=== PATIENT | female | born 1955 | race Caucasian/White ===

== ENCOUNTER → 2017-03-27 | Outpatient (CLI) | payer MEDICARE ==
[2017-03-27 10:54] LABS: ALT 38 U/L (9-52); AST 23 U/L (14-36); Alkaline Phosphatase 58 U/L (38-126); Anion Gap 7 mmol/L; Blood Urea Nitrogen 22 mg/dL (7-17); Calcium 9.8 mg/dL (8.4-10.2); Carbon Dioxide 29 mmol/L (22-30); Chloride 105 mmol/L (98-107); Cholesterol 190 mg/dL (<200); Glucose 99 mg/dL (74-99); HDL Cholesterol 44 mg/dL (40-60); Non-African American GFR(MDRD) 59 (>60 ml/min/1.73 sqM); Potassium 3.8 mmol/L (3.5-5.1); Sodium 141 mmol/L (137-145); Total Bilirubin 0.8 mg/dL (0.2-1.3); Total Protein 6.8 g/dL (6.3-8.2); Triglycerides 175 mg/dL (<150)
--- NOTE | 2017-03-28 11:32 | MM ---
Reason for exam: screening (asymptomatic). Last mammogram was performed 1 year ago. History: Patient is postmenopausal. Physical Findings: A clinical breast exam by your physician is recommended on an annual basis and results should be correlated with mammographic findings. MG 3D Screening Mammo W/Cad Bilateral CC and MLO view(s) were taken. Prior study comparison: March 16, 2016, mammogram, performed at [facility]. March 11, 2015, mammogram, performed at [facility]. The breast tissue is almost entirely fat. There is chronic nodularity in the right breast. No significant changes when compared with prior studies. ASSESSMENT: Benign, BI-RAD 2 RECOMMENDATION: Routine screening mammogram of both breasts in 1 year.
== END | disposition home or self-care (01) ==
LOC: RADMAMWWP 09:23
PROVIDERS: ATTEND Family Medicine
DX: Z12.31 Encounter for screening mammogram for malignant neoplasm of breast (principal); Z00.00 Encounter for general adult medical examination without abnormal findings
CPT/HCPCS: 80061; 80053; 77063; 36415; G0202

== ENCOUNTER → 2018-04-29 | Outpatient (CLI) | payer MEDICARE, OTHER ==
--- NOTE | 2018-05-01 07:55 | MM ---
Reason for exam: screening (asymptomatic). Last mammogram was performed 1 year and 1 month ago. History: Patient is postmenopausal. Physical Findings: A clinical breast exam by your physician is recommended on an annual basis and results should be correlated with mammographic findings. MG 3D Screening Mammo W/Cad Bilateral CC and MLO view(s) were taken. Prior study comparison: March 27, 2017, bilateral MG 3d screening mammo w/cad. March 16, 2016, mammogram, performed at [facility]. There are scattered fibroglandular densities. There are benign appearing round, oval, circumscribed bilateral masses similar to prior exams. Benign appearing bilateral calcifications. No suspicious abnormality. No significant changes when compared with prior studies. ASSESSMENT: Benign, BI-RAD 2 RECOMMENDATION: Routine screening mammogram of both breasts in 1 year.
== END | disposition home or self-care (01) ==
LOC: RADMAMWWP 10:55
PROVIDERS: ATTEND Family Medicine
DX: Z12.31 Encounter for screening mammogram for malignant neoplasm of breast (principal)
CPT/HCPCS: 77063; 77067

== ENCOUNTER → 2018-07-30 | Outpatient (CLI) | payer MEDICARE ==
--- NOTE | 2018-07-31 07:38 | US ---
EXAMINATION TYPE: US thyroid st tissue head/neck DATE OF EXAM: 07/30/2018 COMPARISON: NONE CLINICAL HISTORY: E04.9 GOITER. Goiter GLAND SIZE: Right Lobe: 4.6 x 1.4 x 2.3cm Overall Parenchyma: homogenous Left Lobe: 4.0 x 1.3 x 1.9cm Overall Parenchyma: homogeneous Isthmus Thickness: 0.4 cm NODULES RIGHT: # of nodules measured on right: 2 1. 0.9 X 0.5 x 0.6 cm hypoechoic nodule at the upper pole with poorly defined margins; . This nodu le is wider than tall and shows intranodular vascularity. Prior size: no prior 2. 0.9 X 0.6 x 0.8 cm hypoechoic nodule at the upper pole with poorly defined margins; . This nodul e is wider than tall and shows intranodular vascularity. Prior size: no prior LEFT: # of nodules measured on left: 2 1. 0.6 x 0.4x 0.6cm nodule at the mid pole withwell-defined margins; . This nodule is wider than ta ll and shows no intranodular vascularity. Prior size: no prior 2. 1.2 x 0.8 x 1.2cm cystic nodule at the lower pole with well defined margins. Internal calcificati ons noted. This nodule is wider than tall and shows no intranodular vascularity. Prior size: no prior ISTHMUS: # of nodules measured in the isthmus: 0 IMPRESSION: Scattered bilateral subcentimeter nodules. A 1 cm nodule is at the lower pole of the left lobe thyroi d appears complex cystic.
--- NOTE | 2018-07-31 07:50 | US ---
EXAMINATION TYPE: US pelvic complete DATE OF EXAM: 07/30/2018 COMPARISON: NONE CLINICAL HISTORY: R10.2 PELVIC PAIN. Partial hysterectomy, intermittent pelvic pain TECHNIQUE: Transvaginal (TV) and Transabdominal (TA) . Transabdominal sonographic images of the pel vis were acquired. Transvaginal sonographic images were medically necessary to better assess the fol lowing anatomy: ovaries Date of LMP: unknown EXAM MEASUREMENTS: Uterus: Surgically absent Endometrial Stripe: Surgically absent Right Ovary: unable to visualize Left Ovary: unable to visualize 1. Uterus: Surgically absent 2. Endometrium: Surgically absent 3. Right Ovary: Obscured by overlying bowel gas 4. Left Ovary: Obscured by overlying bowel gas 5. Bilateral Adnexa: appears wnl Urinary bladder is sonolucent. Posterior wall is normal. IMPRESSION: 1. Limited pelvic ultrasound. Patient is post hysterectomy. Bowel gas limits evaluation of the ovarie s.
== END | disposition home or self-care (01) ==
LOC: RADUSWWP 15:41
PROVIDERS: ATTEND Family Medicine
DX: E04.2 Nontoxic multinodular goiter (principal); R10.2 Pelvic and perineal pain; Z90.710 Acquired absence of both cervix and uterus
CPT/HCPCS: 76536; 76830; 76856

== ENCOUNTER → 2018-12-02 | Outpatient (CLI) | payer MEDICARE | LOC: LABPAT 13:23 | PROVIDERS: ATTEND Orthopaedic Surgery | DX: Z01.812 Encounter for preprocedural laboratory examination (principal) | CPT/HCPCS: 87070 ==

== ENCOUNTER 2018-12-23 06:20 | Inpatient (IN) | payer MEDICARE ==
--- NOTE | 2018-12-22 09:19 | HP ---
HISTORY AND PHYSICAL CHIEF COMPLAINT: Right knee pain. HISTORY OF PRESENT ILLNESS: The patient is a 63-year-old retired female who presents with progressive right knee pain, worsening over the past 6 months. She has had problems for years. She notes pain and stiffness. She notes pain with weightbearing activities that limits her. She has tried previous medications and injections with only partial temporary relief. PAST MEDICAL HISTORY: Significant for hypertension and arthritis. PAST SURGICAL HISTORY: Significant for right total shoulder arthroplasty in addition to a left total knee arthroplasty. CURRENT MEDICATIONS: Aspirin and hydrochlorothiazide. ALLERGIES: She notes sensitivities to ULTRAM, BACTRIM, DICLOFENAC, and CIPROFLOXACIN; however, no daisy drug allergies. FAMILY HISTORY: Significant for cancers and stroke. SOCIAL HISTORY: Negative for current tobacco or alcohol use. REVIEW OF SYSTEMS: Sixteen-point review of systems otherwise reviewed and is noncontributory. PHYSICAL EXAMINATION: On examination, the patient is approximately 5 feet 2 inches, 213 pounds of endomorphic habitus. HEENT exam is nonfocal. Neck is supple. She has painless passive motion of the right hip. Straight leg raise is negative. Active motion right knee is -10 to 105 degrees of flexion. She is tender about the medial and lateral joint line. She has some moderate effusion. Collaterals are stable, Johnny's negative, Sakshi's is equivocal. Her distal neurovascular exam appears intact in the right lower extremity. Weightbearing notch lateral and Merchant views of the right knee obtained in the office show severe tricompartmental osteoarthrosis along with chondrocalcinosis. IMPRESSION: Right knee severe tricompartmental osteoarthrosis-symptomatic. RECOMMENDATIONS: I talked to the patient at length regarding her condition and treatment options. At this point, she is having significant pain and mechanical symptoms despite adequate conservative measures. After thorough discussion, she opts to proceed with surgery. We will plan to proceed with right total knee arthroplasty. Risks and benefits were discussed at length in layman's terms. We will institute DVT prophylaxis postoperatively. The patient underwent preoperative medical evaluation by Dr. Goncalves. OLW / ALEC: [id number] /
[~2018-12-23 06:20] MED LIST: ACETAMINOPHEN TAB 500 MG TAB PO ONE; DEXAMETHASONE SOD PHOSPHATE 10 MG/ML 1 ML VIAL IV ONE; MELOXICAM 7.5 MG TAB PO ONE; MIDAZOLAM (PF) 2 MG/2 ML VIAL IV PRN; ONDANSETRON 4 MG/2 ML VIAL IVP ONE; SCOPOLAMINE 1.5MG/72HR PATCH TRANSDERM ONE; TRANEXAMIC ACID 1,000 MG in SODIUM CHLORIDE 0.9% 100 ML IVPB ONE; fentaNYL (PF) 50 MCG/ML 2 ML AMP IV PRN
[2018-12-23] MEDS ORDERED: DEXAMETHASONE SOD PHOS (MDV) 100 MG/10 ML VIAL IVP ONE (06:55)
[2018-12-23] MEDS ORDERED: LACTATED RINGERS 1,000 ML IV ONE ×4 (06:55→09:29)
[2018-12-23] MEDS ORDERED: ONDANSETRON 4 MG/2 ML VIAL IVP ONE (06:55)
[2018-12-23] MEDS ORDERED: fentaNYL (PF) 50 MCG/ML 2 ML AMP IVP ONE (07:12)
[2018-12-23] MEDS ORDERED: PROPOFOL 10 MG/ML 20 ML VIAL IV ONE (07:56)
[2018-12-23] MEDS ORDERED: TRANEXAMIC ACID 1,000 MG/10 ML VIAL ONE (07:56)
[2018-12-23] MEDS ORDERED: PHENYLEPHRINE-0.9% NACL SYG 1 MG/10 ML SYRINGE ONE (07:56)
[2018-12-23] MEDS ORDERED: SODIUM CHLORIDE 0.9% 100 ML BAG ONE (07:56)
[2018-12-23] MEDS ORDERED: ePHEDrine SULFATE/0.9% NACL/PF 50 MG/5 ML SYRINGE IV ONE (07:56)
[2018-12-23] MEDS ORDERED: MIDAZOLAM 2 MG/2 ML VIAL ONE (07:56)
[2018-12-23] MEDS ORDERED: ROPIVACAINE 1,100 MG, SODIUM CHLORIDE 0.9% 500 ML 330 ML MISCELLANE PRN ×2 (07:58)
--- NOTE | 2018-12-23 08:00 | P.ONQ ---
Anesthesiology Proc Note - PNB - Peripheral Nerve Block Performed Right Adductor Canal Infusion Time Out Performed: Yes Procedure Start Time: 07:11 Indication: Acute Post-Operative Pain Specifically requested for management of pain by DrMayra: Jarek Castañeda Sedation Type: Sedate with meaningful contact maintained Preparation: Sterile Prep Position: Supine Catheter Depth at Skin (cm): 8 Catheter: Indwelling Needle Size: 100mm (4") Needle Gauge: 18 Technique: Ultrasound Injectate: 0.5% Ropivacaine (see comment for volume) (20 cc) Blood Aspirated: No Pain Paresthesia on Injection Noted: No Resistance on Injection: Normal Events: Uneventful and Well Tolerated
[2018-12-23] MEDS: ROPIVACAINE 246.25 MG, EPINEPHrine 0.5 MG, KETOROLAC 30 MG, cloNIDine HCL/PF 80 MCG, WA... MISCELLANE ONE ×10 (08:13→08:40)
[2018-12-23] MEDS: ceFAZolin IN SWFI 2 GM/20 ML SYRINGE IVP ONE ×2 (08:13→08:21)
[2018-12-23] MEDS ORDERED: ceFAZolin 3,000 MG in SODIUM CHLORIDE 0.9% IRRIGATIO 3,000 ML IRRIGATION ONE (08:32)
[2018-12-23] MEDS ORDERED: NALOXONE 0.4 MG/ML 1 ML VIAL IV PRN (09:41)
[2018-12-23] MEDS ORDERED: ONDANSETRON 4 MG/2 ML VIAL IVP PRN (09:41)
[2018-12-23] MEDS ORDERED: HYDROmorphone 0.5 MG/0.5 ML SYRINGE IVP PRN (09:41)
[2018-12-23] MEDS ORDERED: MAGNESIUM HYDROXIDE 2,400 MG/10 ML CUP PO PRN (09:41)
--- NOTE | 2018-12-23 10:06 | P.OP ---
Date of Procedure: 12/23/18 Preoperative Diagnosis: Right knee severe tricompartmental osteoarthrosis Postoperative Diagnosis: Same Procedure(s) Performed: Right total knee arthroplastycementedcruciate retaining Implants: Bishop persona size 6 cemented femoral component, size the cemented tibial component, 10 mm articular surface, 29 mm cemented patellar component. This is a cruciate retaining implant. Anesthesia: regional, local, spinal Surgeon: Jarek Castañeda Call Or Contact Centre Coach #1: Xu Barreto Estimated Blood Loss (ml): 50 Pathology: other (Bone fragments) Condition: stable Disposition: PACU Indications for Procedure: The patient's a 63-year-old female who presents with progressive right knee pain secondary to osteoporosis despite conservative measures. A discussion of the risks and benefits of operative intervention versus continued conservative measures was made with patient. She opted to proceed with surgery. Operative risks to include infection, neurovascular injury, development of blood clots, possible component loosening, possible component failure and need for subsequent procedures was discussed. Operative Findings: As below Description of Procedure: The patient was brought to the operating room, and after induction of spinal anesthesia the right lower extremity was prepped and draped in a normal fashion. The tourniquet was inflated to 270 mmHg. A longitudinal incision extending 3 finger breaths above the superior pole of the patella extending to the medial aspect the tibial tubercle was then made. The skin and subcutaneous tissues were divided sharply. Electrocautery was used for hemostasis. A medial parapatellar arthrotomy was then performed. The medial soft tissues to include the superficial and deep portions of the medial collateral ligament as well as the medial hamstring tendons were elevated subperiosteally. The patella was everted. The knee was flexed. A portion of the retropatellar fat pad was excised sharply. The anterior cruciate ligament was sacrificed. I did release the lateral collateral and popliteus from the lateral femoral condyle with electrocautery as she had significant valgus deformity. A starting hole was made in the distal femur 1 cm anterior to the posterior cruciate origin. An intramedullary femoral guide was gently inserted planning on 5 valgus distal cut with 9 mm distal resection. The cutting block was pinned in place. The distal cut was then made. The posterior referencing sizing guide was utilized. 3 of external rotation was built into the system and verified off the trans-epicondylar axis and the posterior condyles. I felt size 6 was most appropriate. The cutting block was pinned in place. The anterior, posterior, and chamfer cuts were then made. The bone fragments were removed. The trial size 6 femoral component was then placed and was fully seated. There was good anterior to posterior and medial to lateral fit. The distal peg holes were then drilled. The trial component was then removed. Attention was then paid towards preparing the proximal tibia. An extra medullary guide was utilized in line with the tibial shaft and second metatarsal distally. A 7 posterior slope was planned. I planned on 8 mm resection from the medial compartment. The cutting block was pinned in place. The proximal tibial cut was then made. The bone was removed in one fragment. The remnants of the medial and lateral menisci were excised the capsule junction with electrocautery. The tibia sized most appropriately at size D. The posterior osteophytes off the distal femur were carefully removed with a curved osteotome. The trial tibial and femoral components were placed along with a 10 millimeters articular surface. I was able to obtain full flexion and extension with good stability with varus and valgus stress. After several flexion and extension cycles, the tibial rotation was marked with electrocautery in line with the medial one third of the tibial tubercle. Attention was then paid towards preparing the patella. A patella reamer was utilized taking this down to 14 mm of bone stock. A good flush cut was made. The patella sized most appropriately at 29 millimeters. The peg holes were then drilled. The trial component was placed. The knee was taken through a range of motion. I had good patellofemoral tracking with no hands technique. The trial components were then removed. The tibia was prepared in the appropriate rotation with appropriate drill and keel punch. The flexion and extension gaps were checked and felt to be symmetric. The posterior soft tissues were injected with ropivacaine. The bony surfaces were prepared with pulsatile lavage and dried. The deep tibial component was then cemented in place and was fully seated. Excess cement was removed. The femoral component was cemented in place and was fully seated. Again excess cement was removed. The trial 10 millimeters surface was then inserted in the knee was put in full extension. The patella component was cemented in place. After the cement had sufficiently hardened, the knee was again taken through a range of motion. Again there was good stability in flexion and extension with varus and valgus stress. The trial articular surface was then removed. The final articular surface was placed and was impacted. Care was taken to avoid any soft tissue interposition. Pulsatile lavage was again utilized. The tourniquet was deflated with approximately 55 minutes total tourniquet time. There was minimal drainage therefore a deep drain was not placed. The medial parapatellar arthrotomy was then closed with #2 Ethibond suture. The subcutaneous tissues were reapproximated interrupted 2-0 Vicryl sutures. The skin was reapproximated with 3-0 subarticular strata fix suture. Skin tape and adhesive was applied. A sterile dressing was applied. The patient was then awoken from sedation and transferred to recovery room in good condition. Blood loss was estimated at 50 milliliters. No complications were incurred. Sponge and needle counts were correct at the end the case. Gavin REDDY assisted during the major components this case to include exposure, bone resection, and implantation.
--- NOTE | 2018-12-23 10:38 | XR ---
EXAMINATION TYPE: XR knee limited RT DATE OF EXAM: 12/23/2018 CLINICAL HISTORY: Right knee pain and arthritis status post total knee replacement. TECHNIQUE: Portable AP and crosstable lateral views of the right knee are obtained immediately posto peratively. COMPARISON: None FINDINGS: Metallic hardware from total right knee arthroplasty is seen and appears satisfactory in a lignment and position. There is evidence of recent surgery with diffuse subcutaneous gas and soft t issue swelling noted. Some ossific density suprapatellar bursa are noted. IMPRESSION: METALLIC HARDWARE FROM TOTAL RIGHT KNEE ARTHROPLASTY IS SATISFACTORY IN ALIGNMENT.
[2018-12-23 10:59] VITALS: BMI 40.2
[2018-12-23] MEDS: HYDROmorphone 0.5 MG/0.5 ML SYRINGE IVP PRN (13:10)
[2018-12-23] MEDS: ASCORBIC ACID 500 MG TAB PO SCH (13:11)
[2018-12-23] MEDS: MULTIVITAMINS, THERA 1 EACH TAB PO SCH (13:11)
[2018-12-23] MEDS: LISINOPRIL 20 MG TAB PO SCH (13:11)
[2018-12-23] MEDS: HYDROCHLOROTHIAZIDE 25 MG TAB PO SCH (13:12)
[2018-12-23] MEDS: LACTATED RINGERS 1,000 ML IV SCH (13:12)
[2018-12-23] MEDS: FAMOTIDINE 20 MG TAB PO SCH (13:12)
[2018-12-23] MEDS: ceFAZolin IN SWFI 2 GM/20 ML SYRINGE IVP SCH ×2 (16:29→23:39)
[2018-12-23] MEDS: HYDROcodone/APAP 7.5-325MG 1 EACH TAB PO PRN ×2 (16:29→21:53)
[2018-12-23] MEDS: SENNOSIDES-DOCUSATE SODIUM 1 EACH TAB PO SCH (20:44)
--- NOTE | 2018-12-23 21:02 | CONS ---
CONSULTATION DATE OF CONSULTATION: 12/23/2018 REASON FOR CONSULTATION: Medical management, requested by Dr. Castañeda. CONSULTATION: This is a 63-year-old patient of Dr. Goncalves out of [place]. Chronic stable medical conditions include GERD, hypertension, rheumatoid arthritis, varicose veins. The patient has undergone right total knee arthroplasty. Post procedure, pain is controlled. No nausea or vomiting. No cardiac history. No chest pain or shortness of breath. REVIEW OF SYSTEMS: CONSTITUTIONAL: None. HEENT: None. RESPIRATORY: None. CARDIOVASCULAR: None. GASTROINTESTINAL: Occasional heartburn. GENITOURINARY: None. MUSCULOSKELETAL: Pain in many joints. DERMATOLOGICAL: None. HEMATOLOGICAL: None. LYMPHATICS: None. PSYCHIATRY: None. NEUROLOGICAL: None. PAST MEDICAL HISTORY: 1. GERD. 2. Hypertension. 3. Rheumatoid arthritis. 4. Varicose veins. 5. Hiatal hernia. PAST SURGICAL HISTORY: 1. Ear surgery. 2. Hernia repair. 3. Hysterectomy. 4. Right shoulder replacement. 5. Right ear surgery. 6. Left paraesophageal hernia repair. 7. Left total knee arthroplasty. SOCIAL HISTORY: No smoking. Alcohol rarely. . FAMILY HISTORY: Mother had uterine cancer. HOME MEDICATIONS: 1. Vitamin B complex 1 capsule p.o. daily. 2. Multivitamin 1 tablet p.o. daily. 3. Motrin 800 mg q.8 p.r.n. 4. Lasix 20 mg p.o. daily. 5. Pepcid 20 mg p.o. daily. 6. Vaseretic 20/25 one tablet p.o. daily. 7. Tagamet 400 mg p.o. daily p.r.n. 8. Vitamin D3 5000 units p.o. daily. 9. Zyrtec 10 mg p.o. daily. 10.FiberCon 625 mg p.o. daily. 11.Calcium 600 mg p.o. daily. 12.Aspirin 325 p.o. b.i.d. 13.Vitamin C 500 mg p.o. daily. 14.Tylenol Arthritis 1300 mg q.8 p.r.n. ALLERGIES: 1. CHLOROMYCETIN. 2. CIPRO. 3. DICLOFENAC. 4. BACTRIM. 5. ULTRAM. PHYSICAL EXAMINATION: VITAL SIGNS: Temperature 97.3, pulse 80, respiration 14, blood pressure 112/59, pulse ox 95% on room air. GENERAL APPEARANCE: Well built; BMI 38.4. Sitting up. Comfortable. EYES: Pupils equal. Conjunctivae normal. HEENT: External appearance of nose and ears normal. Oral cavity normal. NECK: JVD not raised. Mass not palpable. RESPIRATORY: Effort normal. Lungs are clear. CARDIOVASCULAR: First and second sounds normal. No edema. ABDOMEN: Soft, non-tender. Liver and spleen not palpable. LYMPHATIC: No lymph node palpable in neck or axillae. PSYCHIATRY: Alert and oriented x3. Mood and affect normal. EXTREMITIES: Right knee in a dressing. MUSCULOSKELETAL: Evidence of osteoarthritis, especially in the hands. INVESTIGATIONS: No blood work. ASSESSMENT: 1. Right total knee arthroplasty. 2. Gastroesophageal reflux disease. 3. Essential hypertension. 4. Rheumatoid arthritis. 5. Varicose veins. 6. Obesity; body mass index of 38.4. PLAN: Patient's pain control is in place. Getting IV fluids. Also on aspirin 325 twice a day for DVT prophylaxis. Home medications are resumed. Care was discussed with the patient. Questions were answered. Thank you, Dr. Castañeda. [id number] / ALEC: [id number] /
[2018-12-24] MEDS: HYDROcodone/APAP 7.5-325MG 1 EACH TAB PO PRN ×4 (04:48→21:01)
[2018-12-24] MEDS: LACTATED RINGERS 1,000 ML IV SCH (05:23)
[2018-12-24 09:00] LABS: Basophils % (A) 0 %; Eosinophils % (A) 0 %; HCT 34.1 % (34.0-46.0); Lymphocytes # (A) 1.8 k/uL (1.0-4.8); Lymphocytes % (A) 14 %; MCH 29.6 pg (25.0-35.0); MCHC 32.1 g/dL (31.0-37.0); Mean Platelet Volume 6.8; Monocytes # (A) 0.6 k/uL (0-1.0); Monocytes % (A) 4 %; Neutrophils # (A) 10.9 k/uL (1.3-7.7); Neutrophils % (A) 81 %; Platelet Count 247 k/uL (150-450); RBC 3.71 m/uL (3.80-5.40); RDW 14.2 % (11.5-15.5); WBC 13.6 k/uL (3.8-10.6)
[2018-12-24] MEDS: MULTIVITAMINS, THERA 1 EACH TAB PO SCH (09:54)
[2018-12-24] MEDS: ASPIRIN 325 MG TAB PO SCH ×2 (09:54→21:01)
[2018-12-24] MEDS: HYDROCHLOROTHIAZIDE 25 MG TAB PO SCH (09:54)
[2018-12-24] MEDS: ASCORBIC ACID 500 MG TAB PO SCH (09:54)
[2018-12-24] MEDS: FAMOTIDINE 20 MG TAB PO SCH (09:54)
[2018-12-24] MEDS: LISINOPRIL 20 MG TAB PO SCH (09:54)
[2018-12-24 12:08] LABS: Glucose,Whole Blood 112 mg/dL (75-99)
--- NOTE | 2018-12-24 12:14 | P.PN ---
Subjective Progress Note Date: 12/24/18 Principal diagnosis: Status post right total knee arthroplasty Patient evaluated at bedside today, she has family present. Her pain is controlled currently. She's ambulated with therapy. She denies any fevers or chills, chest pain or shortness of breath. Objective - Vital Signs Vital signs: Vital Signs Temp 97.3 F L 12/24/18 07:00 Pulse 75 12/24/18 09:54 Resp 16 12/24/18 09:54 BP 103/69 12/24/18 07:00 Pulse Ox 97 12/24/18 07:00 Intake & Output 12/23/18 12/24/18 12/24/18 18:59 06:59 18:59 Intake Total 1641 600 Output Total 50 Balance 1591 600 Intake: IV 1101 Intake, IV Titration 420 600 Amount Lactated Ringers 1,000 ml 420 600 @ 60 mls/hr IV .[id number] CASEY Rx#:[id number] Oral 120 Output: Estimated Blood Loss 50 - Exam Right lower extremity: Incision is clean, dry, and intact. The exofin fusion tape is in good condition. There is minimal soft tissue swelling and ecchymosis surrounding the medial and lateral aspects of the incision. Calf is soft, no tenderness with palpation. Plantar flexion, dorsiflexion, EHL, FHL are intact. Sensory exam to light touch throughout the extremity is intact, dorsal pedis pulses 2+. - Labs CBC & Chem 7: 12/24/18 08:21 Labs: Abnormal Lab Results - Last 24 Hours (Table) 12/24/18 12/24/18 Range/Units 08:21 12:06 WBC 13.6 H (3.8-10.6) k/uL RBC 3.71 L (3.80-5.40) m/uL Hgb 11.0 L (11.4-16.0) gm/dL Neutrophils # 10.9 H (1.3-7.7) k/uL POC Glucose (mg/dL) 112 H (75-99) mg/dL Assessment and Plan Plan: Assessment: Postop day 1 status post right total knee arthroplasty Plan: Pain control, continue current medication GI and DVT prophylaxis continue current medication Medical recommendations Wound care instructions discussed Continue work physical therapy and use of CPM Encourage incentive spirometer Plan for discharge tomorrow Time with Patient: Less than 30
[2018-12-24] MEDS: SENNOSIDES-DOCUSATE SODIUM 1 EACH TAB PO SCH (21:02)
[2018-12-25] MEDS: HYDROmorphone 0.5 MG/0.5 ML SYRINGE IVP PRN (04:13)
[2018-12-25] MEDS: LACTATED RINGERS 1,000 ML IV SCH (05:17)
[2018-12-25] MEDS: HYDROcodone/APAP 7.5-325MG 1 EACH TAB PO PRN ×2 (07:10→12:52)
[2018-12-25 08:41] VITALS: RESP 12
[2018-12-25 08:53] VITALS: BP 112/78; PULSE 89; TEMP 99.4
[2018-12-25] MEDS: ASPIRIN 325 MG TAB PO SCH (09:16)
[2018-12-25] MEDS: FAMOTIDINE 20 MG TAB PO SCH (09:16)
[2018-12-25] MEDS: ASCORBIC ACID 500 MG TAB PO SCH (09:16)
[2018-12-25] MEDS: HYDROCHLOROTHIAZIDE 25 MG TAB PO SCH (09:16)
[2018-12-25] MEDS: LISINOPRIL 20 MG TAB PO SCH (09:16)
[2018-12-25] MEDS: MULTIVITAMINS, THERA 1 EACH TAB PO SCH (09:16)
--- NOTE | 2018-12-25 10:06 | P.PN ---
Subjective Progress Note Date: 12/25/18 Principal diagnosis: Status post right total knee arthroplasty Patient evaluated at bedside today, she has family present. Her pain is controlled currently. She's ambulated with therapy. She denies any fevers or chills, chest pain or shortness of breath. Objective - Vital Signs Vital signs: Vital Signs Temp 99.4 F 12/25/18 08:52 Pulse 89 12/25/18 08:52 Resp 12 12/25/18 08:52 BP 112/78 12/25/18 08:52 Pulse Ox 95 12/25/18 08:52 Intake & Output 12/24/18 12/25/18 12/25/18 18:59 06:59 18:59 Intake Total 500 Balance 500 Intake: Oral 500 Other: Voiding Method Toilet Toilet # Voids 1 - Exam Right lower extremity: Incision is clean, dry, and intact. The exofin fusion tape is in good condition. There is minimal soft tissue swelling and ecchymosis surrounding the medial and lateral aspects of the incision. Calf is soft, no tenderness with palpation. Plantar flexion, dorsiflexion, EHL, FHL are intact. Sensory exam to light touch throughout the extremity is intact, dorsal pedis pulses 2+. - Labs CBC & Chem 7: 12/24/18 08:21 Labs: Abnormal Lab Results - Last 24 Hours (Table) 12/24/18 Range/Units 12:06 POC Glucose (mg/dL) 112 H (75-99) mg/dL Assessment and Plan Plan: Assessment: Postop day #2 status post right total knee arthroplasty Plan: Pain control, plan for discharge on oral medication GI and DVT prophylaxis, aspirin 325mg bid Medical recommendations Wound care instructions discussed Continue work physical therapy and use of CPM Encourage incentive spirometer Plan for discharge today Time with Patient: Less than 30
--- NOTE | 2018-12-25 10:25 | P.DS ---
Providers Date of admission: 12/23/18 06:20 Expected date of discharge: 12/25/18 Attending physician: Jarek Castañeda Consults: 12/23/18 09:46 Consult Physician Routine Consulting Provider: Ranjeet Goncalves Reason/Comments: Medical Management Do you want consulting provider notified?: Yes Primary care physician: Ranjeet Goncalves Hospital Course: Date of admission: 12/23/2018 Date of discharge: 12/25/2018 Admission diagnosis: Status post right total knee arthroplasty Discharge diagnosis: Same Attending physician: Dr. Castañeda Surgical procedures: Right total knee arthroplasty Brief history: Patient is a 63-year-old female with a history of progressive primary right knee has arthritis. At this point patient has failed conservative treatment measures and has opted to proceed with a elective right total knee arthroplasty. Hospital course: Details of patient's surgery can be found in operative report. Patient tolerated the procedure well and was subsequently transported to orthopedic floor. Patient's orthopeidc and medical care was provided daily. Patient had daily laboratory tests performed for evaluation of overall blood counts. Patient had daily physical therapy to include strengthening range of motion as well as education with walker ambulation. Patient had daily CPM usage as part of their physical therapy program. Patient was treated with aspirin for their postoperative DVT prophylaxis during their inpatient stay. Patient was noted to have a relatively uneventful postoperative course. Patient reported satisfactory pain control with oral pain medications by postoperative day 0. Patient showed satisfactory progress with physical therapy. Patient moved steadily through the program and had no difficulty meeting the goals by postoperative day 2. Given patient's otherwise satisfactory course and having met physical therapy goals, plan is to discharge patient home on postoperative day 2. Discharge condition/disposition: Patient will be discharged home in stable condition. Discharge medications: Instructions are given on resumption of patient's normal daily medications per primary care recommendation, in addition patient will be prescribed [place] 7.5 mg/325 mg aspirin 325 mg Discharge instructions: 1. Wound care and infection precautions, keep incision dry and covered while showering, no lotions, creams, moisturizers. No soaking, tubs, pools, hottubs. Do not scrub over the incision. 2. Weight-bear as tolerated with walker / cane until follow-up. 3. Ice and elevate when necessary. Do not exceed 20 minutes per hour with ice pack. 4. Utilize compression sleeve until seen at first follow up appointment. 5. Visiting nursing care. 6. Home physical therapy including home CPM. 7. Pain meds and anticoagulants per prescription. 8. Pain medication has potential to cause constipation. Increase oral fluid and fiber intake. Contact primary care provider if you have not had a bowel movement within 48 hours after discharge 9. No anti-inflammatory medication until discussed at first post operative visit, this including Motrin, Aleve, Mobic, Diclofenac. 10. Follow up in office at 2 weeks postop with aGvin Barreto PA-C 11. Follow up with your primary care doctor 7-10 days after discharge. 12. Contact [facility] with any questions, . Procedures: Right total knee arthroplasty Patient Condition at Discharge: Good Plan - Discharge Summary Discharge Rx Participant: No New Discharge Prescriptions: New Aspirin 325 mg PO BID #60 tab HYDROcodone/APAP 7.5-325MG [[place] 7.5] 1 - 2 each PO Q6HR PRN #56 tab PRN Reason: Pain No Action Multivitamins, Thera [Multivitamin] 1 tab PO DAILY Cimetidine [Tagamet] 400 mg PO DAILY PRN PRN Reason: Heartburn Ascorbic Acid [Vitamin C] 500 mg PO DAILY Furosemide [Lasix] 20 mg PO DAILY Enalapril/Hydrochlorothiazide [Vaseretic 10-25 mg] 1 tab PO DAILY Calcium Carbonate [Calcium] 600 mg PO DAILY Cholecalciferol [Vitamin D3] 5,000 unit PO DAILY Vitamin B Complex 1 cap PO DAILY Acetaminophen [Tylenol Arthritis] 1,300 mg PO Q8H PRN PRN Reason: Pain Famotidine [Pepcid] 20 mg PO DAILY #30 tablet Ibuprofen [Motrin] 800 mg PO Q8H PRN PRN Reason: Pain Cetirizine HCl [Zyrtec] 10 mg PO DAILY Calcium Polycarbophil [Fibercon] 625 mg PO DAILY Discharge Medication List Acetaminophen [Tylenol Arthritis] 1,300 mg PO Q8H PRN 10/09/16 [History] Ascorbic Acid [Vitamin C] 500 mg PO DAILY 10/09/16 [History] Calcium Carbonate [Calcium] 600 mg PO DAILY 10/09/16 [History] Cholecalciferol [Vitamin D3] 5,000 unit PO DAILY 10/09/16 [History] Cimetidine [Tagamet] 400 mg PO DAILY PRN 10/09/16 [History] Enalapril/Hydrochlorothiazide [Vaseretic 10-25 mg] 1 tab PO DAILY 10/09/16 [ History] Furosemide [Lasix] 20 mg PO DAILY 10/09/16 [History] Multivitamins, Thera [Multivitamin] 1 tab PO DAILY 10/09/16 [History] Vitamin B Complex 1 cap PO DAILY 10/09/16 [History] Famotidine [Pepcid] 20 mg PO DAILY #30 tablet 10/18/16 [Rx] Calcium Polycarbophil [Fibercon] 625 mg PO DAILY 12/15/18 [History] Cetirizine HCl [Zyrtec] 10 mg PO DAILY 12/15/18 [History] Ibuprofen [Motrin] 800 mg PO Q8H PRN 12/15/18 [History] Aspirin 325 mg PO BID #60 tab 12/25/18 [Rx] HYDROcodone/APAP 7.5-325MG [[place] 7.5] 1 - 2 each PO Q6HR PRN #56 tab 12/25/18 [ Rx] Follow up Appointment(s)/Referral(s): [facility], [NON-STAFF] - Xu Barreto PAC [PHYSICIAN QUARRYING SPECIALIST] - 01/07/19 3:50 pm Ranjeet Goncalves MD [Primary Care Provider] - 01/01/19 12:15 pm Activity/Diet/Wound Care/Special Instructions: Orthopedic Discharge Instructions: 1. Wound care and infection precautions, keep incision dry and covered while showering, no lotions, creams, moisturizers. No soaking, pools, hot tubs. Do not scrub over incision. 2. Weight-bear as tolerated with walker / cane until follow-up. 3. Ice and elevate when necessary. Do not exceed 20 minutes per hour with ice pack. 4. Utilize compression sleeve until seen at first follow up appointment. 5. Pain meds and anticoagulants per prescription. 6. Pain medication has potential to cause constipation. Increase oral fluid and fiber intake. Contact primary care provider if you have not had a bowel movement within 48 hours after discharge. 7. No anti-inflammatory medication until discussed at first post operative visit, this including Motrin, Aleve, Mobic, Diclofenac. 8. Follow up in office at 2 weeks postop with Gavin Barreto PA-C 9. Follow up with your primary care doctor 7-10 days after discharge. 10. Contact [facility] with any questions, . Discharge Disposition: HOME WITH HOME HEALTH SERVICES
--- NOTE | 2018-12-25 21:20 | P.PN ---
Progress Note - Text 12/24 63-year-old female status post total knee replacement by Dr. Castañeda, patient has an On-Q pump for postop pain control with the solution running at 8 mL an hour. Patient's comfortable doing well continue On-Q pump infusion
--- NOTE | 2018-12-25 23:58 | PN ---
PROGRESS NOTE DATE OF SERVICE: 12/24/2018 PRESENTING COMPLAINT: Right knee surgery. INTERVAL HISTORY: This patient was seen by me yesterday, status post right total knee arthroplasty. Doing better. Did tolerate some diet. Pain is controlled. No nausea or vomiting. No chest pain. REVIEW OF SYSTEMS: Done for constitutional, cardiovascular, GI, pulmonary; relevant findings as above. CURRENT MEDICATIONS: Reviewed. PHYSICAL EXAMINATION: Temperature 97.3, pulse 75, respiration 16, blood pressure 103/69, pulse ox 97% on room air. GENERAL APPEARANCE: Sitting up. Comfortable. EYES: Pupils equal. Conjunctivae normal. NECK: JVD not raised. Mass not palpable. RESPIRATORY: Effort normal. Lungs are clear. CARDIOVASCULAR: First and second sounds normal. No edema. ABDOMEN: Soft, non-tender. Liver and spleen not palpable. PSYCHIATRY: Alert and oriented x3. Mood and affect normal. INVESTIGATIONS: Hemoglobin 11, white count 13.6. ASSESSMENT: 1. Right total knee arthroplasty. 2. Gastroesophageal reflux disease. 3. Essential hypertension. 4. Rheumatoid arthritis. 5. Varicose veins. 6. Obesity; body mass index 38.4. 7. Leukocytosis with no evidence of infection; likely reactive. PLAN: Continue current medication and treatment plan. Care was discussed with the patient. MMODL / IJN: [id number] /
== END 2018-12-25 13:25 | disposition home health service (06) | DRG 470 ==
LOC: 2ORMAIN 06:20 → 4SSUR 09:55
PROVIDERS: ADMIT Orthopaedic Surgery; ATTEND Orthopaedic Surgery
PROC: 0SRC0J9 Replacement of Right Knee Joint with Synthetic Substitute, Cemented, Open Approach (ICD-10-PCS; principal; 2018-12-23 08:00)
DX: M19.90 Unspecified osteoarthritis, unspecified site (principal); M06.9 Rheumatoid arthritis, unspecified; K21.9 Gastro-esophageal reflux disease without esophagitis; I10 Essential (primary) hypertension; I83.90 Asymptomatic varicose veins of unspecified lower extremity; K44.9 Diaphragmatic hernia without obstruction or gangrene; D72.829 Elevated white blood cell count, unspecified; M81.0 Age-related osteoporosis without current pathological fracture; E66.9 Obesity, unspecified; Z68.38 Body mass index [BMI] 38.0-38.9, adult; Z79.899 Other long term (current) drug therapy; Z90.710 Acquired absence of both cervix and uterus; Z96.611 Presence of right artificial shoulder joint; Z96.652 Presence of left artificial knee joint; Z80.49 Family history of malignant neoplasm of other genital organs; Z82.3 Family history of stroke
CPT/HCPCS: 85025; 88300

== ENCOUNTER 2019-06-14 | Emergency (ER) | payer MEDICARE ==
--- NOTE | 2019-06-14 16:25 | ED ---
Extremity Problem HPI - General Chief complaint: Extremity Problem,Nontraumatic Stated complaint: LEFT LEG CRAMPS Time Seen by Provider: 06/14/19 16:06 Source: patient Mode of arrival: ambulatory - History of Present Illness Initial comments: Patient is a 64-year-old female presenting to the emergency Department with complaints of cramping of her left calf today. Patient states yesterday morning she woke up with some cramping in her calf and she was able to walk them off and the pain went away. Patient states this morning she had a similar episode and again was able to improve her symptoms by walking. Patient states about an hour ago she had another episode of left calf cramping which traveled all the way up to her knee. Patient states the pain was much more intense. Patient states she was able to stretch and use ice pack on the muscle and it did relieve the cramping. Patient was concerned she may have a DVT and decided to come in the ER. Upon arrival, patient is having no pain in her left or right lower extremity. Patient denies recent travel history, history of DVTs. Patient denies fever, chills, cough, chest pain, shortness of breath Patient has no o ther complaints at this time. - Related Data Home Medications Medication Instructions Recorded Confirmed Acetaminophen [Tylenol Arthritis] 1,300 mg PO Q8H PRN 10/09/16 12/23/18 Ascorbic Acid [Vitamin C] 500 mg PO DAILY 10/09/16 12/23/18 Calcium Carbonate [Calcium] 600 mg PO DAILY 10/09/16 12/23/18 Cholecalciferol [Vitamin D3] 5,000 unit PO DAILY 10/09/16 12/23/18 Cimetidine [Tagamet] 400 mg PO DAILY PRN 10/09/16 12/23/18 Enalapril/Hydrochlorothiazide 1 tab PO DAILY 10/09/16 12/23/18 [Vaseretic 10-25 mg] Furosemide [Lasix] 20 mg PO DAILY 10/09/16 12/23/18 Multivitamins, Thera [Multivitamin] 1 tab PO DAILY 10/09/16 12/23/18 Vitamin B Complex 1 cap PO DAILY 10/09/16 12/23/18 Calcium Polycarbophil [Fibercon] 625 mg PO DAILY 12/15/18 12/23/18 Cetirizine HCl [Zyrtec] 10 mg PO DAILY 12/15/18 12/23/18 Ibuprofen [Motrin] 800 mg PO Q8H PRN 12/15/18 12/23/18 Previous Rx's Medication Instructions Recorded Famotidine [Pepcid] 20 mg PO DAILY #30 tablet 10/18/16 Aspirin 325 mg PO BID #60 tab 12/25/18 HYDROcodone/APAP 7.5-325MG [[place] 1 - 2 each PO Q6HR PRN #56 tab 12/25/18 7.5] Allergies Allergy/AdvReac Type Severity Reaction Status Date / Time chloramphenicol Allergy dizzy Verified 06/14/19 16:04 [From Chloromycetin] ciprofloxacin Allergy Rash/Hives Verified 06/14/19 16:04 diclofenac Allergy Itching,ana Verified 06/14/19 16:04 rrhea sulfamethoxazole Allergy Rash/Hives Verified 06/14/19 16:04 [From Bactrim] tramadol [From Ultram] Allergy Itching Verified 06/14/19 16:04 trimethoprim [From Bactrim] Allergy Rash/Hives Verified 06/14/19 16:04 Review of Systems ROS Statement: Those systems with pertinent positive or pertinent negative responses have been documented in the HPI. ROS Other: All systems not noted in ROS Statement are negative. Past Medical History Past Medical History: GERD/Reflux, Hypertension, Rheumatoid Arthritis (RA) Additional Past Medical History / Comment(s): varicose veins, hx hiatal hernia, bakers cyst back of left knee History of Any Multi-Drug Resistant Organisms: None Reported Past Surgical History: Ear Surgery, Hernia Repair, Hysterectomy, Joint Replacement Additional Past Surgical History / Comment(s): rt shoulder replacement, R ear surgery, L paraesophageal hernia repair. LT TKA, COLONOSCOPY Past Anesthesia/Blood Transfusion Reactions: Motion Sickness Past Psychological History: No Psychological Hx Reported Smoking Status: Never smoker Past Alcohol Use History: Rare Past Drug Use History: None Reported - Past Family History Mother Family Medical History: Cancer Additional Family Medical History / Comment(s): Mother had uterine cancer. Father Family Medical History: Rheumatoid Arthritis (RA) Additional Family Medical History / Comment(s): Father had varicosities and hernias. General Exam - General Exam Comments Initial Comments: GENERAL: Well-appearing, well-nourished and in no acute distress. HEAD: Atraumatic, normocephalic. EYES: Pupils equal round and reactive to light, extraocular movements intact, sclera anicteric, conjunctiva are normal. ENT: TMs normal, nares patent, oropharynx clear without exudates. Moist mucous membranes. NECK: Normal range of motion, supple without lymphadenopathy or JVD. LUNGS: Breath sounds clear to auscultation bilaterally and equal. No wheezes rales or rhonchi. HEART: Regular rate and rhythm without murmurs, rubs or gallops. ABDOMEN: Soft, nontender, normoactive bowel sounds. No guarding, no rebound. No masses appreciated. : Deferred EXTREMITIES: Normal range of motion, no pitting or edema. No clubbing or cyanosis. No erythema or pain with palpation of the bilateral lower legs. NEUROLOGICAL: Cranial nerves II through XII grossly intact. Normal speech, normal gait. PSYCH: Normal mood, normal affect. SKIN: Warm, Dry, normal turgor, no rashes or lesions noted. Course Vital Signs 06/14/19 16:01 Temperature 99.1 F Pulse Rate 81 Respiratory 16 Rate Blood Pressure 123/65 O2 Sat by Pulse 100 Oximetry Medical Decision Making - Medical Decision Making Patient is a 64-year-old female presenting with lower leg cramps x 2 day. Patient describes left lower leg gastroc cramp that lasted 5 minutes and she was able to relieve with stretching and ice packs. Patient was concerned that this is a sign for DVT. Patient denies any recent travel, history of DVTs. Initially, patient denied any recent increase in activity. However patient did admit to recently walking a lot of stairs at a [employer] [facility] as well as walking up and down hills at a house. On exam patient has no pain in the bilateral lower legs. There is no erythema. Concern for DVTs is very low at this time. Was discussed with patient is a most likely muscle cramps and to continue with stretching and ice as needed for relief. Also increase fluid intake over the next few days. Follow-up with PCP if symptoms continue. Patient is in agreement with this plan of care. She is stable for discharge. Disposition Clinical Impression: Calf cramp Disposition: HOME SELF-CARE Condition: Stable Instructions (If sedation given, give patient instructions): Leg Cramps (ED) Additional Instructions: Please return to the Emergency Department if symptoms worsen or any other concerns. Follow-up with PCP if symptoms continue. Use stretching and ice for relief. Increase fluid intake as discussed. Is patient prescribed a controlled substance at d/c from ED?: No Referrals: Ranjeet Goncalves MD [Primary Care Provider] - 1-2 days
== END 2019-06-14 16:46 | disposition home or self-care (01) ==
CPT/HCPCS: 99282

== ENCOUNTER → 2019-07-02 | Outpatient (CLI) | payer MEDICARE ==
--- NOTE | 2019-07-06 09:30 | MM ---
Reason for exam: screening (asymptomatic). Last mammogram was performed 1 year and 2 months ago. History: Patient is postmenopausal. Family history of breast cancer in maternal aunt. Physical Findings: A clinical breast exam by your physician is recommended on an annual basis and results should be correlated with mammographic findings. MG 3D Screening Mammo W/Cad Bilateral CC and MLO view(s) were taken. CV view(s) were taken of the left breast. Prior study comparison: April 29, 2018, bilateral MG 3d screening mammo w/cad. March 27, 2017, bilateral MG 3d screening mammo w/cad. There are scattered fibroglandular densities. There is chronic nodularity in the right breast. Benign oil cyst calcifications greater in the right breast. Lower inner quadrant left breast microcalcifications appear punctate and were seen in 2018. ASSESSMENT: Benign, BI-RAD 2 RECOMMENDATION: Routine screening mammogram of both breasts in 1 year.
== END | disposition home or self-care (01) ==
LOC: RADMAMWWP 13:15
PROVIDERS: ATTEND Family Medicine
DX: Z12.31 Encounter for screening mammogram for malignant neoplasm of breast (principal)
CPT/HCPCS: 77063; 77067

== ENCOUNTER → 2020-04-06 | Outpatient (CLI) | payer MEDICARE ==
[2020-04-06 09:08] LABS: Basophils # (A) 0.1 k/uL (0-0.2); Basophils % (A) 1 %; Eosinophils # (A) 0.1 k/uL (0-0.7); Eosinophils % (A) 2 %; HCT 40.1 % (34.0-46.0); HGB 13.1 gm/dL (11.4-16.0); Lymphocytes # (A) 1.3 k/uL (1.0-4.8); Lymphocytes % (A) 25 %; MCH 29.4 pg (25.0-35.0); MCHC 32.8 g/dL (31.0-37.0); MCV 89.9 fL (80.0-100.0); Mean Platelet Volume 7.8; Monocytes # (A) 0.3 k/uL (0-1.0); Monocytes % (A) 5 %; Neutrophils # (A) 3.3 k/uL (1.3-7.7); Neutrophils % (A) 63 %; Platelet Count 281 k/uL (150-450); RBC 4.46 m/uL (3.80-5.40); RDW 13.5 % (11.5-15.5); WBC 5.2 k/uL (3.8-10.6)
[2020-04-06 09:30] LABS: Albumin 4.2 g/dL (3.5-5.0); Calcium 9.8 mg/dL (8.4-10.2); Potassium 4.6 mmol/L (3.5-5.1); Total Bilirubin 0.5 mg/dL (0.2-1.3); Total Protein 6.8 g/dL (6.3-8.2)
[2020-04-06 09:46] LABS: INR 0.9 (<1.2); Partial Thromboplastin Time 24.8 sec (22.0-30.0); Prothrombin Time 9.7 sec (9.0-12.0)
== END | disposition home or self-care (01) ==
LOC: LABPAT 07:55
PROVIDERS: ATTEND Orthopaedic Surgery
DX: Z01.818 Encounter for other preprocedural examination (principal); Z01.812 Encounter for preprocedural laboratory examination
CPT/HCPCS: 80053; 85025; 85610; 85730; 87070

== ENCOUNTER 2020-04-08 05:32 | Inpatient (IN) | payer MEDICARE ==
[2020-04-05 13:01] VITALS: BMI 40.0
--- NOTE | 2020-04-07 10:38 | HP ---
HISTORY AND PHYSICAL CHIEF COMPLAINT: Left shoulder pain. HISTORY OF PRESENT ILLNESS: The patient is a 64-year-old, right-hand dominant, retired female who presents with progressive left shoulder pain for the past 2 years. She has a history of arthritis. She has diffuse pain with any attempted overhead use and at night. It has worsened recently. She has tried anti-inflammatories without much relief. PAST MEDICAL HISTORY: Significant for hypertension and arthritis. PAST SURGICAL HISTORY: Significant for bilateral ear surgery, esophageal hernia repair, right total shoulder arthroplasty and bilateral total knee arthroplasties. CURRENT MEDICATIONS: Aspirin, hydrochlorothiazide, Lasix, ibuprofen. She has sensitivity to Bactrim, Ultram, diclofenac, and ciprofloxacin. However, no daisy drug allergies. FAMILY HISTORY: Significant for cancer. SOCIAL HISTORY: Negative for current tobacco or alcohol use. 16 POINT REVIEW OF SYSTEMS: Otherwise reviewed and is noncontributory. PHYSICAL EXAMINATION: On examination, the patient is approximately 5 foot 2, 226 pounds of endomorphic habitus. HEENT: Exam is nonfocal. Neck is supple. On examination of the left shoulder, she is tender about the anterior glenohumeral joint. She has mild swelling. She has moderate subacromial crepitus. Active range of motion, forward elevation 85 degrees, external rotation with the arms at side -10 degrees, internal rotation to the body. Motor strength is 5/5 for abduction and external rotation. Her distal neurovascular exam appears intact in the left upper extremity. X-rays to include AP, scapular outlet view and axillary lateral view of the left shoulder show severe glenohumeral joint osteoarthrosis with [id number] changes. The humeral head to acromial distance appears to be maintained. IMPRESSION: Severe left glenohumeral joint osteoarthrosis-symptomatic. RECOMMENDATIONS: I talked to the patient at length regarding her condition and treatment options. At this point, she is quite symptomatic and limited because of pain and stiffness related to her osteoarthrosis, despite attempting conservative measures. After a thorough discussion, she opts to proceed with surgery. We will plan to proceed with left total shoulder arthroplasty. Risks and benefits were discussed at length in layman's terms. We will likely keep the patient for a 23-hour hold postoperatively. MMODL / IJN: [id number] /
[~2020-04-08 05:32] MED LIST changes: -DEXAMETHASONE SOD PHOSPHATE 10 MG/ML 1 ML VIAL IV ONE; -MIDAZOLAM (PF) 2 MG/2 ML VIAL IV PRN; -ONDANSETRON 4 MG/2 ML VIAL IVP ONE; -SCOPOLAMINE 1.5MG/72HR PATCH TRANSDERM ONE; -fentaNYL (PF) 50 MCG/ML 2 ML AMP IV PRN
[2020-04-08] MEDS ORDERED: MIDAZOLAM 2 MG/2 ML VIAL IV PRN (05:50)
[2020-04-08] MEDS ORDERED: DEXAMETHASONE SOD PHOSPHATE 10 MG/ML 1 ML VIAL IV ONE (05:50)
[2020-04-08] MEDS ORDERED: ONDANSETRON 4 MG/2 ML VIAL IVP ONE (05:50)
[2020-04-08] MEDS ORDERED: LIDOCAINE 1% (10MG/ML) FOR IV START INTRADERMA PRN (05:50)
[2020-04-08] MEDS ORDERED: HYDROmorphone 0.5 MG/0.5 ML SYRINGE IVP PRN ×2 (05:50→08:55)
[2020-04-08] MEDS ORDERED: fentaNYL (PF) 50 MCG/ML 2 ML AMP IV PRN (05:50)
[2020-04-08] MEDS: LACTATED RINGERS 1,000 ML IV SCH (06:22)
[2020-04-08] MEDS ORDERED: SCOPOLAMINE 1.5MG/72HR PATCH TRANSDERM ONE (06:25)
[2020-04-08] MEDS ORDERED: TRANEXAMIC ACID 1,000 MG/10 ML VIAL ONE (06:56)
[2020-04-08] MEDS ORDERED: LIDOCAINE 1% INJ 10MG/ML (20 ML MDV) ONE (06:56)
[2020-04-08] MEDS ORDERED: ROPIVACAINE 5 MG/ML 30 ML VIAL ONE (06:56)
[2020-04-08] MEDS ORDERED: fentaNYL (PF) 50 MCG/ML 2 ML AMP ONE (06:56)
[2020-04-08] MEDS ORDERED: PROPOFOL 10 MG/ML 20 ML VIAL IV ONE (06:56)
[2020-04-08] MEDS ORDERED: MIDAZOLAM 2 MG/2 ML VIAL ONE (06:56)
[2020-04-08] MEDS ORDERED: ROCURONIUM BROMIDE 10 MG/ML 5 ML VIAL IV ONE (06:56)
[2020-04-08] MEDS ORDERED: SUCCINYLCHOLINE CHLORIDE 100 MG/5 ML SYR IV ONE (06:56)
[2020-04-08] MEDS ORDERED: SODIUM CHLORIDE 0.9% 100 ML BAG ONE (06:56)
[2020-04-08] MEDS ORDERED: ceFAZolin 3,000 MG in SODIUM CHLORIDE 0.9% IRRIGATIO 3,000 ML IRRIGATION ONE (07:30)
[2020-04-08] MEDS ORDERED: ONDANSETRON 4 MG/2 ML VIAL IVP PRN (08:55)
[2020-04-08] MEDS ORDERED: HYDROcodone/APAP 5-325MG 1 EACH TAB PO PRN (08:55)
--- NOTE | 2020-04-08 09:27 | P.OP ---
Date of Procedure: 04/08/20 Preoperative Diagnosis: Severe left glenohumeral joint osteoarthrosis Postoperative Diagnosis: Same Procedure(s) Performed: Left total shoulder arthroplasty Implants: [employer] size 8 press-fit humeral stem, 44 x 21 mm eccentric humeral head, 44 mm cemented pegged glenoid component Anesthesia: TARA Surgeon: Jarek Castañeda Ruling Machine Feeder #1: Xu Barreto Estimated Blood Loss (ml): 200 Pathology: other (Humeral head) Condition: stable Disposition: PACU Indications for Procedure: The patient is a 64-year-old female who presents with progressive left shoulder pain secondary to osteoarthrosis despite conservative measures. A discussion of the risks and benefits of operative intervention versus continued conservative measures was made with the patient. She opted proceed with surgery. Operative risks to include infection, neurovascular injury, development of blood clots, possible component loosening, possible component failure need for subsequent procedures was discussed. Informed consent was obtained. Operative Findings: As below Description of Procedure: The patient was brought to the operating room, and after induction of general anesthesia was placed in the beachchair position. The bony prominences were appropriately padded. The left upper extremity was prepped and draped in normal fashion. A deltopectoral incision was then made lateral to the coracoid process extending approximately 12 cm. The skin was incised sharply. Subcutaneous tissues were divided bluntly. Electrocautery was used for hemostasis. The deltopectoral interval was identified and the cephalic vein gently retracted laterally with the deltoid. Subdeltoid adhesions were bluntly dissected. A self-retaining retractor was placed. The clavipectoral fascia was opened and the conjoined tendon gently retracted medially. The upper one third of the pectoralis major was released to help facilitate exposure. The biceps was identified and the sheath was opened. The rotator interval was opened. The biceps was tenotomized and allowed to retract distally. The lesser tuberosity osteotomy was performed with a small sagittal saw. This completed with an osteotome. The humeral head was then exposed releasing the capsule off the humeral neck. The shoulder was gently dislocated. A starting hole was made in the head in line with the humeral shaft. The shaft was reamed by hand up to 8 mm. There is good distal chatter. The cutting guide was placed planning on a cut flush with the rotator cuff insertion and 30 of retroversion. The cutting block was pinned in place. The humeral head cut was then made. This measured most appropriately at 44 mm. Residual inferior osteophytes were carefully removed flush with the [place] cortical bone. A posterior glenoid retractor was placed. The glenoid was then exposed releasing the labrum from the 6 o'clock position to the 12 o'clock position. Residual labral tissue was removed. The glenoid sized most appropriate 44 mm. A guidewire was then inserted planning on the appropriate version. The glenoid was reamed down to a bleeding bony surface. The central pedicle was drilled. The alignment guide was placed in the peripheral peg holes drilled. The trial size 44 mm glenoid was placed and was fully seated. There was good anterior to posterior and inferior to superior fit. The trial component was removed. Pulsatile lavage was utilized. The bony surface was dried. The peripheral peg holes were then pressurized with cement utilizing a syringe. Excess cement was removed. A central peg glenoid was then placed and was fully seated. This was gently impacted. This was held in place until the cement had sufficiently hardened. Attention was then paid again towards preparing the proximal humerus. The appropriate broach was placed in 30 of retroversion and was fully seated. An eccentric 44 x 21 mm humeral head was placed. The shoulder was gently reduced. It was taken through a range of motion. It was felt to be stable in flexion and extension with internal and external rotation. I felt there was adequate anabaptist of soft tissue tension. The shoulder was gently dislocated. The trial components were then removed. A #2 Ethibond was placed laterally for reattachment of the lesser tuberosity. The humeral stem was inserted in 30 of retroversion and was fully seated. There was good rotational stability. The eccentric 44 x 21 mm humeral head was gently impacted. The shoulder was then gently reduced and taken through range of motion and was felt to be stable. Pulsatile lavage was utilized. Lesser tuberosity was reattached utilizing #2 Ethibond suture. The rotator interval was closed with #2 Ethibond suture. She had minimal drainage at this point therefore a deep drain was not placed. The deltopectoral interval was closed with interrupted 2-0 Vicryl sutures. The subcu tissues were reapproximated with interrupted 2-0 Vicryl sutures. The skin was reprepped with 3-0 subcuticular Prolene suture. Steri-Strips were applied. A sterile dressing was applied in addition to a sling. The patient was then awoken from general anesthesia and transferred to recovery room in good condition. Blood loss was estimated at 200 mL. No complications were incurred. Sponge and needle counts were correct at the end the case. Gavin REDDY assisted during the major components the case to include exposure, bony resection, implantation, and closure.
[2020-04-08] MEDS ORDERED: MIDAZOLAM 2 MG/2 ML VIAL IVP ONE (10:08)
[2020-04-08] MEDS ORDERED: fentaNYL (PF) 50 MCG/ML 2 ML AMP IVP ONE (10:08)
[2020-04-08] MEDS ORDERED: FAMOTIDINE 20 MG TAB PO PRN (10:21)
[2020-04-08] MEDS ORDERED: LACTATED RINGERS 1,000 ML IV ONE (10:49)
--- NOTE | 2020-04-08 11:03 | XR ---
Left shoulder HISTORY: Status post left shoulder arthroplasty Single frontal view of the left shoulder Patient is status post left shoulder arthroplasty. There is anatomic alignment. Left lung apex as vis ualized is normal. There is lucency in the soft tissues. Overlying lead noted. IMPRESSION: Orthopedic follow-up.
[2020-04-08] MEDS: LISINOPRIL 20 MG TAB PO SCH (11:49)
[2020-04-08] MEDS: HYDROCHLOROTHIAZIDE 25 MG TAB PO SCH (11:49)
--- NOTE | 2020-04-08 12:26 | P.ANPRN ---
Procedure Note - Anesthesia - Nerve Block Performed Left Interscalene Single Time Out Performed: Yes ([id number]) Date of Procedure: 04/08/20 Procedure Start Time: : Procedure Stop Time: :12 Location of Patient: PreOp Indication: Acute Post-Operative Pain, Requested by Surgeon Specifically requested for management of pain by : Jarek Castañeda Sedation Type: Sedate with meaningful contact maintained Preparation: Sterile Prep Position: Supine Catheter: None Needle Types: Pajunk Needle Gauge: 21 Ultrasound used to visualize needle placement: Yes Ultrasound used to observe medication spread: Yes Injectate: 0.5% Ropivacaine (see comment for volume) (25cc) Blood Aspirated: No Pain Paresthesia on Injection Noted: No Resistance on Injection: Normal Image Stored and Saved: Yes Events: Uneventful and Well Tolerated
--- NOTE | 2020-04-08 16:54 | P.CONS ---
History of Present Illness - Reason for Consult Consult date: 04/08/20 Medical management Requesting physician: Jarek Castañeda - Chief Complaint Left shoulder pain - History of Present Illness Consultation: This is a very pleasant 64-year-old patient of Dr. alcantara. Chronic stable medical conditions include GERD, hypertension, rheumatoid arthritis, hiatal hernia, varicose veins. Patient's undergone left total shoulder arthroplasty. Postprocedure patient is still under anesthesia with left arm feeling numb. And in a sling. No nausea vomiting. No chest pain or shortness of breath. No fever no chills. Sitting up in bed. Review of systems: GEN.: None EYES: None HEENT: None NECK: None RESPIRATORY: None CARDIOVASCULAR: None GASTROINTESTINAL: Heartburn GENITOURINARY: None MUSCULOSKELETAL: Joint pains] LYMPHATICS: None HEMATOLOGICAL: None PSYCHIATRY: None NEUROLOGICAL: None Past medical history to include: Hypertension, GERD, rheumatoid arthritis, varicose veins, hiatal hernia Social history: Does not *Smoke. Alcohol rarely. Lives with her . Physical examination: VITAL SIGNS: 97.7, 85, 129/85, repeat percent on 2 L GENERAL: Propped up in bed, comfortable with left arm in a sling. EYES: Pupils equal. Conjunctiva normal. HEENT: External appearance of nose and ears normal, oral cavity grossly normal. NECK: JVD not raised; masses not palpable. HEART: First and second heart sounds are normal; no edema. LUNGS: Respiratory rate normal; clear to auscultation. ABDOMEN: Soft, nontender, liver spleen not palpable, no masses palpable. PSYCH: Alert and oriented x3; mood and affect ale MUSCULAR schedule: Dressing over the left shoulder. Left arm in a sling NEUROLOGICAL: Cranial nerves grossly intact; no facial asymmetry, power and sensation grossly intact. LYMPHATICS: No lymph nodes palpable in the axilla and neck INVESTIGATIONS, reviewed in the clinical context: Blood work from April 06 shows White count 5.2 hemoglobin 13.1 platelets 281 potassium 4.6 creatinine 1.04 Assessment: -Left shoulder arthroplasty -Obesity BMI 39.7 -GERD -Essential hypertension -Rheumatoid arthritis -Hiatal hernia Plan: Home medications resumed. Pain medications are in place. Patient left arm is still numb from anesthesia. Home medications resumed. Care was discussed with the patient question were answered. Thank you Dr. Beebe Past Medical History Past Medical History: GERD/Reflux, Hypertension, Rheumatoid Arthritis (RA) Additional Past Medical History / Comment(s): varicose veins, hx hiatal hernia, History of Any Multi-Drug Resistant Organisms: None Reported Past Surgical History: Ear Surgery, Hernia Repair, Hysterectomy, Joint Replacement Additional Past Surgical History / Comment(s): rt shoulder replacement, R ear surgery, L paraesophageal hernia repair. Lefty TKA, COLONOSCOPY, bakers cyst removed left knee Past Anesthesia/Blood Transfusion Reactions: Motion Sickness Smoking Status: Never smoker - Past Family History Mother Family Medical History: Cancer Additional Family Medical History / Comment(s): Mother had uterine cancer. Father Family Medical History: Rheumatoid Arthritis (RA) Additional Family Medical History / Comment(s): Father had varicosities and hernias. Medications and Allergies Home Medications Medication Instructions Recorded Confirmed Type Acetaminophen [Tylenol Arthritis] 1,300 mg PO Q8H PRN 10/09/16 04/08/20 History Ascorbic Acid [Vitamin C] 500 mg PO DAILY 10/09/16 04/08/20 History Calcium Carbonate [Calcium] 600 mg PO DAILY 10/09/16 04/08/20 History Cholecalciferol [Vitamin D3] 5,000 unit PO DAILY 10/09/16 04/08/20 History Enalapril/Hydrochlorothiazide 1 tab PO DAILY 10/09/16 04/08/20 History [Vaseretic 10-25 mg] Furosemide [Lasix] 20 mg PO DAILY 10/09/16 04/08/20 History Multivitamins, Thera [Multivitamin] 1 tab PO DAILY 10/09/16 04/08/20 History Vitamin B Complex 1 cap PO DAILY 10/09/16 04/08/20 History Calcium Polycarbophil [Fibercon] 625 mg PO DAILY 12/15/18 04/08/20 History Cetirizine HCl [Zyrtec] 10 mg PO DAILY 12/15/18 04/08/20 History Ibuprofen [Motrin] 800 mg PO Q8H PRN 12/15/18 04/08/20 History Aspirin [Adult Low Dose Aspirin EC] 81 mg PO DAILY 04/05/20 04/08/20 History Famotidine [Pepcid] 20 mg PO DAILY PRN 04/05/20 04/08/20 History Allergies Allergy/AdvReac Type Severity Reaction Status Date / Time chloramphenicol Allergy dizzy Verified 04/08/20 06:07 [From Chloromycetin] ciprofloxacin Allergy Rash/Hives Verified 04/08/20 06:07 diclofenac Allergy Itching,ana Verified 04/08/20 06:07 rrhea sulfamethoxazole Allergy Rash/Hives Verified 04/08/20 06:07 [From Bactrim] tramadol [From Ultram] Allergy Itching Verified 04/08/20 06:07 trimethoprim [From Bactrim] Allergy Rash/Hives Verified 04/08/20 06:07 Physical Exam Vitals: Vital Signs Temp Pulse Pulse Resp BP Pulse Ox 04/08/20 10:00 84 16 159/69 100 04/08/20 09:30 81 16 129/60 99 04/08/20 09:17 96.8 F L 96 14 147/76 96 04/08/20 06:06 97.9 F 86 16 127/65 97 Intake and Output 04/07/20 04/08/20 04/08/20 22:59 06:59 14:59 Intake Total 200 651 Output Total 200 Balance 200 451 Intake: IV 200 651 Output: Estimated Blood Loss 200 Other: Weight 98.5 kg
[2020-04-08 23:57] VITALS: PULSE 79
[2020-04-09] MEDS: HYDROcodone/APAP 7.5-325MG 1 EACH TAB PO PRN ×2 (05:26→12:42)
[2020-04-09] MEDS: LACTATED RINGERS 1,000 ML IV SCH (05:40)
[2020-04-09 07:46] VITALS: RESP 17; TEMP 98
[2020-04-09 07:55] LABS: Basophils % (A) 0 %; Eosinophils % (A) 0 %; HCT 32.6 % (34.0-46.0); HGB 10.9 gm/dL (11.4-16.0); Lymphocytes # (A) 1.2 k/uL (1.0-4.8); Lymphocytes % (A) 11 %; MCH 30.2 pg (25.0-35.0); MCHC 33.4 g/dL (31.0-37.0); MCV 90.4 fL (80.0-100.0); Mean Platelet Volume 7.7; Monocytes # (A) 0.6 k/uL (0-1.0); Monocytes % (A) 6 %; Neutrophils # (A) 8.7 k/uL (1.3-7.7); Neutrophils % (A) 81 %; Platelet Count 252 k/uL (150-450); RDW 13.5 % (11.5-15.5); WBC 10.7 k/uL (3.8-10.6)
[2020-04-09] MEDS: HYDROCHLOROTHIAZIDE 25 MG TAB PO SCH (08:59)
[2020-04-09] MEDS: LISINOPRIL 20 MG TAB PO SCH (08:59)
[2020-04-09 09:00] VITALS: BP 93/58
[2020-04-09] MEDS ORDERED: ASPIRIN 325 MG TAB PO SCH (09:00)
[2020-04-09] MEDS ORDERED: MULTIVITAMINS, THERA 1 EACH TAB PO SCH (09:00)
[2020-04-09] MEDS ORDERED: NON FORMULARY DRUG (Vitamin B Complex [Vitamin B Complex] 1 CAP) PO SCH (09:00)
[2020-04-09] MEDS ORDERED: ASPIRIN 81 MG PO SCH (09:00)
[2020-04-09] MEDS ORDERED: ASCORBIC ACID 500 MG TAB PO SCH (09:00)
--- NOTE | 2020-04-09 10:50 | P.PN ---
Subjective Progress Note Date: 04/09/20 Principal diagnosis: Status post left total shoulder arthroplasty Patient evaluated at bedside today, she is resting comfortably. She did note some increase in pain this morning when the block were off, it is controlled well known. She denies any chest pain or shortness of breath at this time. Objective - Vital Signs Vital signs: Vital Signs Temp 98.0 F 04/09/20 07:45 Pulse 79 04/09/20 07:45 Resp 17 04/09/20 07:45 BP 93/58 04/09/20 08:59 Pulse Ox 98 04/09/20 08:58 Intake & Output 04/08/20 04/09/20 04/09/20 18:59 06:59 18:59 Intake Total 801 Output Total 200 Balance 601 Weight 98.5 kg Intake: IV 801 Output: Estimated Blood Loss 200 Other: Voiding Method Toilet Toilet # Voids 1 4 1 - Exam Left upper extremity: Postoperative bandage was removed, incision is clean, dry and intact. A new bandage was applied. Minimal soft tissue swelling present. Sensory exam to light touch throughout the extremity is intact. Radial pulses 2+. - Labs CBC & Chem 7: 04/09/20 06:57 Labs: Abnormal Lab Results - Last 24 Hours (Table) 04/09/20 Range/Units 06:57 WBC 10.7 H (3.8-10.6) k/uL RBC 3.60 L (3.80-5.40) m/uL Hgb 10.9 L (11.4-16.0) gm/dL Hct 32.6 L (34.0-46.0) % Neutrophils # 8.7 H (1.3-7.7) k/uL Assessment and Plan Assessment: Status post left total shoulder arthroplasty Plan: Pain control, plan for discharge home on oral medication GI and DVT prophylaxis, aspirin 325 mg daily for 2 weeks Utilize arm sling, activity restrictions were discussed Wound care instructions were discussed Icing elevating techniques were discussed Plan for discharge home today Time with Patient: Less than 30
--- NOTE | 2020-04-09 10:52 | P.DS ---
Providers Date of admission: 04/08/20 05:32 Expected date of discharge: 04/09/20 Attending physician: Jarek Castañeda Consults: 04/08/20 08:55 Consult Physician Routine Consulting Provider: Darrel Blanc Consult Reason/Comments: medical management Do you want consulting provider notified?: Yes Primary care physician: Ranjeet Goncalves [facility] Course: Date of admission: 04/08/2020 Date of discharge: 04/09/2020 Admission diagnosis: Status post left total shoulder arthroplasty Discharge diagnosis: Same Attending physician: Dr. Castañeda Surgical procedures: Left total shoulder arthroplasty Brief history: Patient is a 64-year-old female with a history of progressive primary left shoulder osteoarthritis. At this point patient has failed conservative treatment measures and has opted to proceed with a elective left total shoulder arthroplasty. Hospital course: Details of patient's surgery can be found in operative report. Patient tolerated the procedure well and was subsequently transported to orthopedic floor. Patient's orthopeidc and medical care was provided daily. Patient had daily laboratory tests performed for evaluation of overall blood counts. Patient had daily physical therapy to include strengthening range of motion as well as education with walker ambulation. Patient was treated with aspirin for their postoperative DVT prophylaxis during their inpatient stay. Patient was noted to have a relatively uneventful postoperative course. Patient reported satisfactory pain control with oral pain medications by postoperative day 0. Patient showed satisfactory progress with physical therapy. Patient moved steadily through the program and had no difficulty meeting the goals by postoperative day 1. Given patient's otherwise satisfactory course and having met physical therapy goals, plan is to discharge patient home on postoperative day 1. Discharge condition/disposition: Patient will be discharged home in stable condition. Discharge medications: Instructions are given on resumption of patient's normal daily medications per primary care recommendation, in addition patient will be prescribed Blanchard 7.5 mg/325 mg, aspirin 325 mg. Discharge instructions: 1. Wound care and infection precautions, keep incision dry and covered while showering, no lotions, creams, moisturizers. No soaking, tubs, pools, hottubs. Do not scrub over the incision. 2. Utilize arm sling 3. Ice and elevate when necessary. Do not exceed 20 minutes per hour with ice pack. 4. Utilize compression sleeve until seen at first follow up appointment. 7. Pain meds and anticoagulants per prescription. 8. Pain medication has potential to cause constipation. Increase oral fluid and fiber intake. Contact primary care provider if you have not had a bowel movement within 48 hours after discharge 9. No anti-inflammatory medication until discussed at first post operative visit, this including Motrin, Aleve, Mobic, Diclofenac 10. Follow up in office at 2 weeks postop with Gavin Barreto PA-C 11. Follow up with your primary care doctor 7-10 days after discharge. 12. Contact [facility] with any questions, . Procedures: Left total shoulder arthroplasty Patient Condition at Discharge: Good Plan - Discharge Summary Discharge Rx Participant: No New Discharge Prescriptions: New Aspirin 325 mg PO DAILY #30 tab HYDROcodone/APAP 7.5-325MG [Blanchard 7.5] 1 - 2 each PO Q6HR PRN #56 tab PRN Reason: Pain Discontinued Aspirin [Adult Low Dose Aspirin EC] 81 mg PO DAILY No Action Multivitamins, Thera [Multivitamin] 1 tab PO DAILY Ascorbic Acid [Vitamin C] 500 mg PO DAILY Furosemide [Lasix] 20 mg PO DAILY Enalapril/Hydrochlorothiazide [Vaseretic 10-25 mg] 1 tab PO DAILY Calcium Carbonate [Calcium] 600 mg PO DAILY Cholecalciferol [Vitamin D3] 5,000 unit PO DAILY Vitamin B Complex 1 cap PO DAILY Acetaminophen [Tylenol Arthritis] 1,300 mg PO Q8H PRN PRN Reason: Pain Ibuprofen [Motrin] 800 mg PO Q8H PRN PRN Reason: Pain Cetirizine HCl [Zyrtec] 10 mg PO DAILY Calcium Polycarbophil [Fibercon] 625 mg PO DAILY Famotidine [Pepcid] 20 mg PO DAILY PRN PRN Reason: gerd Discharge Medication List Acetaminophen [Tylenol Arthritis] 1,300 mg PO Q8H PRN 10/09/16 [History] Ascorbic Acid [Vitamin C] 500 mg PO DAILY 10/09/16 [History] Calcium Carbonate [Calcium] 600 mg PO DAILY 10/09/16 [History] Cholecalciferol [Vitamin D3] 5,000 unit PO DAILY 10/09/16 [History] Enalapril/Hydrochlorothiazide [Vaseretic 10-25 mg] 1 tab PO DAILY 10/09/16 [History] Furosemide [Lasix] 20 mg PO DAILY 10/09/16 [History] Multivitamins, Thera [Multivitamin] 1 tab PO DAILY 10/09/16 [History] Vitamin B Complex 1 cap PO DAILY 10/09/16 [History] Calcium Polycarbophil [Fibercon] 625 mg PO DAILY 12/15/18 [History] Cetirizine HCl [Zyrtec] 10 mg PO DAILY 12/15/18 [History] Ibuprofen [Motrin] 800 mg PO Q8H PRN 12/15/18 [History] Famotidine [Pepcid] 20 mg PO DAILY PRN 04/05/20 [History] Aspirin 325 mg PO DAILY #30 tab 04/09/20 [Rx] HYDROcodone/APAP 7.5-325MG [Blanchard 7.5] 1 - 2 each PO Q6HR PRN #56 tab 04/09/20 [Rx] Follow up Appointment(s)/Referral(s): Xu Barreto PAC [PHYSICIAN [employer] SALES [employer]SULTANT] - 2 Weeks Activity/Diet/Wound Care/Special Instructions: Orthopedic discharge instructions: 1. Utilize arm sling 2. Keep incision clean, dry and covered while showering 3. Ice and elevate often 4. Aspirin 325 mg daily for DVT prophylaxis 5. Pain medication as needed Discharge Disposition: HOME SELF-CARE
--- NOTE | 2020-04-09 18:56 | P.PN ---
Progress Note - Text Progress Note Date: 04/09/20 - Chief Complaint Left shoulder pain Consultation: This is a very pleasant 64-year-old patient of Dr. alcantara. Chronic stable medical conditions include GERD, hypertension, rheumatoid arthritis, hiatal hernia, varicose veins. Patient's undergone left total shoulder arthroplasty. Postprocedure patient is still under anesthesia with left arm feeling numb. And in a sling. No nausea vomiting. No chest pain or shortness of breath. No fev er no chills. Sitting up in bed. today-. Sitting upon a chair. Feeling well. Some pain in left shoulder. No nausea vomiting. Did tolerate her breakfast. Up to the bathroom. Review of systems: Was done for constitutional, cardiovascular, GI, pulmonary.musculoskeletal relevant finding as above Current medications reviewed in today's electronic records Physical examination: VITAL SIGNS: 98, 79, 17, 98/62, 96% on room air GENERAL:sitting up in a chair, left arm in a sling EYES: Pupils equal. Conjunctiva normal. HEENT: External appearance of nose and ears normal, oral cavity grossly normal. NECK: JVD not raised; masses not palpable. HEART: First and second heart sounds are normal; no edema. LUNGS: Respiratory rate normal; clear to auscultation. ABDOMEN: Soft, nontender, liver spleen not palpable, no masses palpable. PSYCH: Alert and oriented x3; mood and affect ale MUSCULAR schedule: Dressing over the left shoulder. Left arm in a sling INVESTIGATIONS, reviewed in the clinical context: White count 10.7 hemoglobin 10.9 Blood work from April 06 shows White count 5.2 hemoglobin 13.1 platelets 281 potassium 4.6 creatinine 1.04 Assessment: -Left shoulder arthroplasty -Obesity BMI 39.7 -GERD -Essential hypertension -Rheumatoid arthritis -Hiatal hernia -Acute postprocedure blood loss anemia as expected from surgery -Hypotension from blood loss. No shock Plan: -patient's antihypertensives have been held. Patient's check a blood pressure daily. once the systolic blood pressure goes above 130 , she can resume her antihypertensives. Follow with PCP in one week.. Thank you Dr. Castañeda
== END 2020-04-09 14:32 | disposition home or self-care (01) | DRG 483 ==
LOC: 2ORMAIN 05:32 → 4SSUR 10:03
PROVIDERS: ADMIT Orthopaedic Surgery; ATTEND Orthopaedic Surgery
PROC: 0RRK0JZ Replacement of Left Shoulder Joint with Synthetic Substitute, Open Approach (ICD-10-PCS; principal; 2020-04-08 07:00)
DX: M19.012 Primary osteoarthritis, left shoulder (principal); D62 Acute posthemorrhagic anemia; I95.9 Hypotension, unspecified; I10 Essential (primary) hypertension; Z96.653 Presence of artificial knee joint, bilateral; Z96.611 Presence of right artificial shoulder joint; E66.9 Obesity, unspecified; K21.9 Gastro-esophageal reflux disease without esophagitis; K44.9 Diaphragmatic hernia without obstruction or gangrene; M06.9 Rheumatoid arthritis, unspecified; Z98.890 Other specified postprocedural states; Z90.710 Acquired absence of both cervix and uterus; Z80.49 Family history of malignant neoplasm of other genital organs; Z79.899 Other long term (current) drug therapy; Z79.82 Long term (current) use of aspirin; Z68.39 Body mass index [BMI] 39.0-39.9, adult; Z88.1 Allergy status to other antibiotic agents; Z88.5 Allergy status to narcotic agent; Z88.2 Allergy status to sulfonamides; Z88.8 Allergy status to other drugs, medicaments and biological substances
CPT/HCPCS: 64415; 76942; 80053; 85025; 85610; 85730; 87070; 88300; 94760

== ENCOUNTER → 2020-07-15 | Outpatient (CLI) | payer MEDICARE ==
--- NOTE | 2020-07-18 11:53 | MM ---
Reason for exam: screening (asymptomatic). Last mammogram was performed 1 year ago. History: Patient is postmenopausal. Family history of breast cancer in maternal aunt. Physical Findings: A clinical breast exam by your physician is recommended on an annual basis and results should be correlated with mammographic findings. MG 3D Screening Mammo W/Cad Bilateral CC and MLO view(s) were taken. Prior study comparison: July 02, 2019, bilateral MG 3d screening mammo w/cad. April 29, 2018, bilateral MG 3d screening mammo w/cad. There are scattered fibroglandular densities. There is chronic nodularity bilaterally. No significant changes when compared with prior studies. ASSESSMENT: Benign, BI-RAD 2 RECOMMENDATION: Routine screening mammogram of both breasts in 1 year.
== END | disposition home or self-care (01) ==
LOC: RADMAMWWP 08:49
PROVIDERS: ATTEND Family Medicine
DX: Z12.31 Encounter for screening mammogram for malignant neoplasm of breast (principal)
CPT/HCPCS: 77063; 77067

== ENCOUNTER → 2021-02-08 | Outpatient (CLI) | payer MEDICARE ==
--- NOTE | 2021-02-08 08:39 | CT ---
EXAMINATION TYPE: CT brain wo con DATE OF EXAM: 02/08/2021 COMPARISON: None. HISTORY: Vertigo CT DLP: 1072.3 mGycm. Automated Exposure Control for Dose Reduction was Utilized. TECHNIQUE: CT scan of the head is performed without contrast. FINDINGS: There is no acute intracranial hemorrhage, mass effect, or midline shift identified. The ventricles and sulci are within normal limits in size for patient's age. Stanley-white matter differen tiation is maintained. Evidence of prior right mastoid surgery. No suspicious opacification left mast oid air cells. The globes are intact and the visualized sinuses are clear. IMPRESSION: Prior right mastoid surgery otherwise unremarkable study.
--- NOTE | 2021-02-08 11:00 | ECHOF ---
Referral Reason:R42 Vertigo MEASUREMENTS -------- HEIGHT: 154.9 cm WEIGHT: 99.8 kg BP: RVIDd: 3.3 cm (< 3.3) IVSd: 1.4 cm (0.6 - 1.1) LVIDd: 3.3 cm (3.9 - 5.3) LVPWd: 1.5 cm (0.6 - 1.1) IVSs: 1.7 cm LVIDs: 2.2 cm LVPWs: 1.8 cm LAESV Index (A-L): 35.28 ml/m Ao Diam: 2.9 cm (2.0 - 3.7) AV Cusp: 1.8 cm (1.5 - 2.6) LA Diam: 4.5 cm (2.7 - 3.8) MV EXCURSION: 13.838 mm (> 18.000) MV EF SLOPE: 44 mm/s (70 - 150) EPSS: 0.1 cm MV E Lb: 0.88 m/s MV DecT: 283 ms MV A Lb: 1.01 m/s MV E/A Ratio: 0.88 AV maxP.00 mmHg AV meanP.53 mmHg RAP: 5.00 mmHg RVSP: 22.11 mmHg FINDINGS -------- Sinus rhythm. This was a technically adequate study. The left ventricular size is normal. There is moderate concentric left ventricular hypertrophy. O verall left ventricular systolic function is normal with, an EF between 55 - 60 %. The diastolic fi lling pattern is normal for the age of the patient 19.98. The right ventricle is mildly enlarged. LA is moderately dilated 34-39 ml/m2 The right atrial size is normal. Interatrial and interventricular septum intact. There is mild aortic valve sclerosis. There is no evidence of aortic regurgitation. There is no e vidence of aortic stenosis. Mild mitral annular calcification present. Mild mitral regurgitation is present. Mild tricuspid regurgitation present. There is no evidence of pulmonary hypertension. The right v entricular systolic pressure, as measured by Doppler, is 22.11mmHg. There is no pulmonic regurgitation present. The aortic root size is normal. IVC Not well visulized. There is no pericardial effusion. CONCLUSIONS -------- 1. The left ventricular size is normal. 2. There is moderate concentric left ventricular hypertrophy. 3. Overall left ventricular systolic function is normal with, an EF between 55 - 60 %. 4. The diastolic filling pattern is normal for the age of the patient 19.98 5. The right ventricle is mildly enlarged. 6. LA is moderately dilated 34-39 ml/m2 7. There is mild aortic valve sclerosis. 8. Mild mitral annular calcification present. 9. Mild mitral regurgitation is present. 10. Mild tricuspid regurgitation present. ALARM INSTALLATION TECHNICIAN: Lorenza Ward RDCS
== END | disposition home or self-care (01) ==
LOC: RADCTMAIN 07:23
PROVIDERS: ATTEND Family Medicine
DX: I08.3 Combined rheumatic disorders of mitral, aortic and tricuspid valves (principal)
CPT/HCPCS: 70450; 93306

== ENCOUNTER → 2021-04-26 | Outpatient (CLI) | payer MEDICARE ==
--- NOTE | 2021-04-26 15:24 | CT ---
EXAMINATION TYPE: CT chest wo con DATE OF EXAM: 04/26/2021 COMPARISON: None HISTORY: COPD CT DLP: 425.8 mGycm, Automated exposure control for dose reduction was used. CONTRAST: Performed injected with 0 mL of Isovue 300. TECHNIQUE: Axial images were obtained at 5 mm thick sections. Reconstructed images are reviewed on t he computer in the coronal plane. FINDINGS: Portion of the thyroid visualized is normal. Tiny punctate pleural-based nodule may be present in the lateral right apex. Series 4 image 8. Additi onal punctate area may be along the anterior lateral right upper lung field. Series 4 image 10.There is a 0.5 cm nodule within the right middle lobe. Series 4 image 24. There is a 0.3 cm nodule within t he periphery of the right middle lobe. Series 4 image 23. There may be some compressive atelectasis within the dependent left lung base. There is an area of pneumonitis measuring 1.0 x 1.9 cm anterior right midlung. Series 4 image 17. There is a 1.0 cm lymph node in the pretracheal space. An additional 1.2 cm lymph nodes in the pretr acheal space and more inferior. The ascending aorta diameter at the level of the main pulmonary artery is 3.1 cm. The main pulmonary artery diameter at the bifurcation is 3.3 cm. Some coronary artery calcification is present. Limited CT sections are obtained through the upper abdomen. There is a hiatal hernia present. Gallsto joselyn likely present. IMPRESSIONS: 1. Several small nodules within the right lung and enlarged pretracheal lymphadenopathy. Metastatic d isease should be considered. 2. Area of pneumonitis with irregular density on previous could be an infectious etiology. However, p rimary mass should also be considered. A Yellow level critical message alert has been initiated for Ze Espinal MD~[id number] via the [employer] Critical Results System on 04/26/2021 3:21 PM. This message alert has been sent to Ze Espinal MD~[id number] via the preferences provided by the clinician for the receipt of Radiology Critical Finding s. Message ID [id number].
== END | disposition home or self-care (01) ==
LOC: RADCTMAIN 06:40
PROVIDERS: ATTEND Family Medicine
DX: J44.0 Chronic obstructive pulmonary disease with (acute) lower respiratory infection (principal); J18.9 Pneumonia, unspecified organism
CPT/HCPCS: 71250

== ENCOUNTER → 2021-08-15 | Outpatient (CLI) | payer MEDICARE ==
--- NOTE | 2021-08-16 10:29 | MM ---
Reason for exam: screening (asymptomatic). Last mammogram was performed 1 year and 1 month ago. History: Patient is postmenopausal. Family history of breast cancer in maternal aunt. Physical Findings: A clinical breast exam by your physician is recommended on an annual basis and results should be correlated with mammographic findings. MG 3D Screening Mammo W/Cad Bilateral CC, MLO, and XCCL view(s) were taken. CV view(s) were taken of the left breast. Prior study comparison: July 15, 2020, bilateral MG 3d screening mammo w/cad. July 02, 2019, bilateral MG 3d screening mammo w/cad. Benign appearing bilateral calcifications. There is chronic nodularity bilaterally. No significant changes when compared with prior studies. ASSESSMENT: Benign, BI-RAD 2 RECOMMENDATION: Routine screening mammogram of both breasts in 1 year.
== END | disposition home or self-care (01) ==
LOC: RADMAMWWP 08:22
PROVIDERS: ATTEND Family Medicine
DX: Z12.31 Encounter for screening mammogram for malignant neoplasm of breast (principal); Z80.3 Family history of malignant neoplasm of breast
CPT/HCPCS: 77063; 77067

== ENCOUNTER → 2021-10-26 | Outpatient (CLI) | payer MEDICARE ==
--- NOTE | 2021-10-27 08:47 | CT ---
EXAMINATION TYPE: CT chest w con DATE OF EXAM: 10/26/2021 COMPARISON: 04/26/2021 HISTORY: Follow-up nodules Automated exposure control for dose reduction was used. CONTRAST: CT scan of the chest is performed with IV Contrast, patient injected with 100 mL of Isovue 300. FINDINGS: LUNGS: There are few sub-5 mm scattered pulmonary nodules are redemonstrated unchanged. No new nodule s are seen. Area of focal pneumonitis in the region of the right upper lobe medially has resolved. Th ere is mild groundglass density at the lung bases which may reflect inflammatory/postinflammatory jay nge. MEDIASTINUM: There are no greater than 1 cm hilar or mediastinal lymph nodes. No pericardial effusi on is seen. Thoracic aorta is of normal caliber. The heart is not enlarged. UPPER ABDOMEN: Cholelithiasis. Fixed sliding-type hiatal hernia. OTHER: No additional significant abnormality is seen. IMPRESSION: 1. Stable scattered sub-5 mm pulmonary nodularity. 2. Resolution of the previously noted focal area of pneumonitis right upper lobe. 3. Scattered basilar groundglass density may reflect inflammatory/postinflammatory change
== END | disposition home or self-care (01) ==
LOC: RADCTMAIN 16:21
PROVIDERS: ATTEND Internal Medicine
DX: R91.8 Other nonspecific abnormal finding of lung field (principal); J18.1 Lobar pneumonia, unspecified organism
CPT/HCPCS: 82565; 84520; 71260; 36415; Q9967

== ENCOUNTER → 2022-03-23 | Day surgery (SDC) | payer MEDICARE ==
[2022-03-22 14:48] VITALS: BMI 41.5
[~2022-03-23] MED LIST changes: -ACETAMINOPHEN TAB 500 MG TAB PO ONE; +LACTATED RINGERS 1,000 ML IV SCH; +LIDOCAINE 2% INJ 20 MG/ML (2 ML VIAL) ONE; -MELOXICAM 7.5 MG TAB PO ONE; +PROPOFOL 10 MG/ML 20 ML VIAL IV ONE; -TRANEXAMIC ACID 1,000 MG in SODIUM CHLORIDE 0.9% 100 ML IVPB ONE
[2022-03-23 09:59] VITALS: TEMP 97.3
--- NOTE | 2022-03-23 11:54 | P.PCN ---
Date of Procedure: 03/23/22 Procedure(s) Performed: BRIEF HISTORY: Patient is a 66-year-old, pleasant, female scheduled for an upper endoscopy as a part of evaluation of GERD/excessive belching and burping for the last several years duration. Recently was started on Nexium 40 mg daily and symptoms have improved.. Because of insurance reasons the Nexium was changed to omeprazole 40 mg daily. PROCEDURE PERFORMED: Esophagogastroduodenoscopy with biopsy. PREOPERATIVE DIAGNOSIS: GERD/excessive belching and bloating. IV sedation per anesthesia. PROCEDURE: After informed consent was obtained, the patient was brought into the endoscopy unit. IV sedation was administered by Anesthesia under continuous monitoring. Initially the Olympus GIF-140 video endoscope was inserted into the mouth. Esophagus intubated without any difficulty. It was gradually advanced into the stomach and duodenum and carefully examined. The bulb and the second part of the duodenum appeared normal. The scope at this time was withdrawn to the stomach, adequately insufflated with air, and upon careful examination, mucosa of the antrum, multiple scattered erosions consistent with gastritis and biopsies were done from this area. The body, cardia and the fundus appeared normal. The scope was then withdrawn into the esophagus. The GE junction was l ocated at 39 cm from the incisors. Small sliding type hiatal hernia noted. The esophagus appeared normal. There were no erosions or ulcerations seen, biopsies were done from the distal esophagus and the patient tolerated the procedure well. IMPRESSION: 1. Antral erosive gastritis. 2. Small hiatal Hernia but no evidence of esophagitis or Thompson's esophagus. RECOMMENDATIONS: The findings of this examination were discussed with the patient as well as a family. She was advised to follow with the biopsy results. She will continue with omeprazole 40 mg daily and follow antireflux measures..
[2022-03-23 12:15] VITALS: BP 115/76; PULSE 71; RESP 18
== END ==
LOC: ORWHC2ENDO 09:14
PROVIDERS: ATTEND Internal Medicine Gastroenterology
DX: K29.50 Unspecified chronic gastritis without bleeding (principal); K21.9 Gastro-esophageal reflux disease without esophagitis; K44.9 Diaphragmatic hernia without obstruction or gangrene; M06.9 Rheumatoid arthritis, unspecified; J45.909 Unspecified asthma, uncomplicated; Z79.82 Long term (current) use of aspirin; Z79.899 Other long term (current) drug therapy; Z79.891 Long term (current) use of opiate analgesic; Z88.1 Allergy status to other antibiotic agents; Z88.8 Allergy status to other drugs, medicaments and biological substances; Z88.5 Allergy status to narcotic agent
CPT/HCPCS: 88305; 43239; J2704; J2001

== ENCOUNTER → 2022-06-05 | Outpatient (CLI) | payer MEDICARE ==
--- NOTE | 2022-06-05 13:21 | NM ---
EXAMINATION TYPE: NM bone 3 phase DATE OF EXAM: 06/05/2022 COMPARISON: NONE HISTORY: Pain Triple phase bone scintigraphy was performed following the injection of 24.7 mCi Tc 99m MDP. Immedia te images and 3 hours post injection images acquired. FINDINGS: There is symmetric flow to the knee bilaterally. Photopenic defects compatible with bilateral knee ar throplasty are seen. Blood pool images demonstrate symmetric soft tissue uptake bilaterally. Delayed imaging demonstrates mildly increased uptake involving the tibia and articular surface of the patella most likely postsurgical. IMPRESSION: 1. Perfusion is symmetric bilaterally with symmetric appearing uptake involving the knee arthroplasti es also be most likely postsurgical.
== END | disposition home or self-care (01) ==
LOC: RADNMMAIN 07:15
PROVIDERS: ATTEND Orthopaedic Surgery
DX: T84.038D Mechanical loosening of other internal prosthetic joint, subsequent encounter (principal)
CPT/HCPCS: 78315; A9503

== ENCOUNTER → 2022-10-17 | Outpatient (CLI) | payer MEDICARE ==
--- NOTE | 2022-10-17 15:43 | BD ---
EXAMINATION TYPE: Axial Bone Density DATE OF EXAM: 10/17/2022 COMPARISON: NONE CLINICAL HISTORY: 67 years year old Female. ICD-10 CODE: N95.9 MENOPAUSAL AND PERIMENOPAUSAL DISORD Height: 5 fFT 1 3/4 IN Weight: 215 FRAX RISK QUESTIONS: Alcohol (3 or more units per day): NO Family History (Parent hip fracture): NO Glucocorticoids (More than 3mos): NO (Ex: prednisone, prednisolone, methylprednisolone, dexamethasone, and hydrocortisone). History of Fracture in Adulthood: NO Secondary Osteoporosis: 1. Type 1 Diabetes: NO 2. Hyperthyroidism: NO 3. Menopause before 45: NO 4. Malnutrition: NO 5. Chronic liver disease: NO Rheumatoid Arthritis: YES Current Tobacco Use: NO RISK FACTORS HISTORY OF: Surgery to Spine/Hip(right/left)/Wrist (right/left): NO Family History of Osteoporosis: NO Active: NO Diet low in dairy products/other sources of calcium: NO Postmenopausal woman: YES Take estrogen and/or progesterone medications: NO Lost more than 2 inches in height since high school: NO Frequent falls: NO Poor Health: GOOD Hyperparathyroidism: NO Adrenal Insufficiency: NO MEDICATIONS: Additional Medications: BLOOD PRESSURE MEDS, MOTRIN, H2O PILL, ANTACID Additional History: EXAM MEASUREMENTS: Bone mineral densitometry was performed using the [email or web address] System. Bone mineral density as measured about the Lumbar spine is: ----- L1-L4(G/cm2): 1.769 T Score Values are as follows: ----- L1: 2.6 ----- L2: 3.7 ----- L3: 5.6 ----- L4: 7.0 ----- L1-L4: 4.9 PREV DONE ELSEWHERE Bone mineral density about the R hip (g/cm2): 0.802 Bone mineral density about the L hip (g/cm2): 0.918 T Score values are as follows: -----R Neck: -1.7 -----L Neck: -0.9 -----R Total: -0.5 -----L Total: 0.3 PREV DONE ELSEWHERE FRAX%s: The graph provided illustrates a 9.3 % chance for a major osteoporotic fx and a 1.4 % chance for the hips probability for fx in 10 years time. IMPRESSION: Osteopenia (T Score between -2.5 and -1). There is slightly increased risk of fracture and the patient may be considered for treatment. Re-Screen 2-5 years. NOTE: T-SCORE=SD OF THE YOUNG ADULT MEAN.
--- NOTE | 2022-10-17 18:46 | MM ---
Reason for Exam: Screening (asymptomatic). Last mammogram was performed 1 year(s) and 2 month(s) ago. Patient History: Menarche at age 9. First Full-Term at age 18. Hysterectomy at age 28. Postmenopausal. Maternal aunt had breast cancer. Risk Values: Madina 5 year model risk: 1.7%. NCI Lifetime model risk: 5.2%. Prior Study Comparison: 07/02/2019 Bilateral Screening Mammogram, [facility]. 07/15/2020 Bilateral Screening Mammogram, [facility]. 08/15/2021 Bilateral Screening Mammogram, [facility]. Tissue Density: There are scattered fibroglandular densities. Findings: Analyzed By CAD. Pattern appears symmetrical. Benign scattered spherical and round calcifications are present. No significant interval change is evident. Nodularity is present bilaterally. No suspicious groups of microcalcifications, spiculated or lobular masses, architectural distortion or other secondary signs of malignancy are mammographically apparent. Overall Assessment: Benign, BI-RAD 2 Management: Screening Mammogram of both breasts in 1 year. A negative mammogram report should not preclude additional follow up of suspicious palpable abnormalities. Patient should continue monthly self breast exam. A clinical breast exam by your physician is recommended on an annual basis and results should be correlated with mammographic findings. Electronically signed and approved by: Marcelo Kovacs D.O. Radiologis
== END | disposition home or self-care (01) ==
LOC: RADMAMWWP 09:36
PROVIDERS: ATTEND Family Medicine
DX: Z12.31 Encounter for screening mammogram for malignant neoplasm of breast (principal); Z78.0 Asymptomatic menopausal state; Z80.3 Family history of malignant neoplasm of breast
CPT/HCPCS: 77063; 77067; 77080

== ENCOUNTER 2023-06-25 08:16 | Day surgery (SDC) | payer MEDICARE ==
[2023-06-20 12:27] VITALS: BMI 40.2
[2023-06-25] MEDS ORDERED: LACTATED RINGERS 1,000 ML IV SCH (08:38)
[2023-06-25] MEDS ORDERED: LIDOCAINE 1% (10MG/ML) FOR IV START INTRADERMA PRN (08:38)
[2023-06-25 08:55] VITALS: RESP 16; TEMP 97.7
[2023-06-25] MEDS ORDERED: PROPOFOL 10 MG/ML 20 ML VIAL IV ONE (09:38)
--- NOTE | 2023-06-25 09:49 | P.PCN ---
Date of Procedure: 06/25/23 Procedure(s) Performed: BRIEF HISTORY: Patient is a 68-year-old pleasant white female scheduled for an elective colonoscopy as a part of evaluation of intermittent rectal bleeding for the last 1 month duration. PROCEDURE PERFORMED: Colonoscopy. PREOPERATIVE DIAGNOSIS: Intermittent rectal bleeding. IV sedation per Anesthesia. PROCEDURE: After informed consent was obtained, the patient, was brought into the endoscopy unit. IV sedation was administered by Anesthesia under continuous monitoring. Digital rectal examination was normal. Initially the Olympus CF-160 flexible video colonoscope was then inserted in the rectum, gradually advanced into the cecum without any difficulty. Careful examination was performed as the scope was gradually being withdrawn. Ileocecal valve and the appendiceal orifice were visualized and appeared normal. Prep was excellent. Mucosa of the cecum, ascending colon, transverse colon, descending colon, sigmoid colon, and rectum appeared normal. Scattered sigmoid diverticulosis. Retroflexion was performed in the rectum and monitor hemorrhoids were seen. The patient tolerated the procedure well. IMPRESSION: Normal-appearing colon from rectum to cecum with no evidence of colorectal neoplasia Scattered sigmoid diverticulosis Small internal hemorrhoids. RECOMMENDATIONS: Findings of this examination were discussed with the patient is a family. she was advised to be a high-fiber diet and take fiber supplement mental regular basis. Recommend repeat screening colonoscopy in 10 years..
[2023-06-25 10:08] VITALS: BP 114/59; PULSE 72
== END 2023-06-25 10:34 | disposition home or self-care (01) ==
LOC: ORWHC2ENDO 08:16
PROVIDERS: ATTEND Internal Medicine Gastroenterology
DX: K62.5 Hemorrhage of anus and rectum (principal); K57.30 Diverticulosis of large intestine without perforation or abscess without bleeding; K64.8 Other hemorrhoids
CPT/HCPCS: 45378; J2704

== ENCOUNTER → 2023-09-10 | Outpatient (CLI) | payer MEDICARE ==
--- NOTE | 2023-09-10 12:44 | US ---
EXAMINATION TYPE: US thyroid st tissue head/neck DATE OF EXAM: 09/10/2023 COMPARISON: Thyroid ultrasound 07/30/2018 CLINICAL INDICATION: Female, 68 years old with history of E05.90 THYROTOXICOSIS; hyperthyroid, f/u fr om 2018 GLAND SIZE: Right Lobe: 4.9 x 2.2 x 1.9 cm Overall Parenchyma: heterogenous Left Lobe: 4.6 x 2.0 x 1.3 cm Overall Parenchyma: heterogenous Isthmus Thickness: 0.5 cm NODULES RIGHT: # of nodules measured on right: 0 LEFT: # of nodules measured on left: 1 1. 0.9 X 0.8 x 0.6 cm, lower , cystic or almost completely cystic, anechoic nodule, which is wider than tall, with smooth margins, with echogenic foci. Prior size: 0.6 x 0.6 x 0.4 cm ISTHMUS: # of nodules measured in the isthmus: 0 Bilateral neck scanned, no evidence of lymphadenopathy. IMPRESSION: Marginal increase in size of subcentimeter left thyroid lobe TR 2 nodule. Appearance consistent with a colloid nodule. No new thyroid nodules. ACR TI-RADS LEVEL: TR-RADS 2 - Not Suspicious: No FNA *Highest TI-RADS level nodule reported
== END | disposition home or self-care (01) ==
LOC: RADUSWWP 11:24
PROVIDERS: ATTEND Family Medicine
DX: E05.90 Thyrotoxicosis, unspecified without thyrotoxic crisis or storm (principal); E04.1 Nontoxic single thyroid nodule
CPT/HCPCS: 76536

== ENCOUNTER → 2023-10-18 | Outpatient (CLI) | payer MEDICARE ==
--- NOTE | 2023-10-23 12:10 | MM ---
Reason for Exam: Screening (asymptomatic). Last screening mammogram was performed 12 month(s) ago. Patient History: Menarche at age 9. First Full-Term at age 18. Hysterectomy at age 28. Postmenopausal. Maternal aunt had breast cancer. Risk Values: Madina 5 year model risk: 1.7%. NCI Lifetime model risk: 5.0%. Prior Study Comparison: 07/15/2020 Bilateral Screening Mammogram, [facility]. 08/15/2021 Bilateral Screening Mammogram, [facility]. 10/17/2022 Bilateral MG 3D screening mammo w/cad, [facility]. Tissue Density: The breast tissue is almost entirely fat. Findings: Analyzed By CAD. There is no suspicious group of microcalcifications or new suspicious mass. Overall Assessment: Benign, BI-RAD 2 Management: Screening Mammogram of both breasts in [address] [facility] will attempt to contact patient to return for supplemental views and ultrasound if indicated. Patient should continue monthly self-breast exams. A clinical breast exam by your physician is recommended on an annual basis. This exam should not preclude additional follow-up of suspicious palpable abnormalities. Note on Madina scores and lifetime risk: 1. A Madina score greater than 3% is considered moderate risk. If this is the case, consider specialist referral to assess eligibility for a risk reducing agent. 2. If overall lifetime risk for the development of breast cancer is 20% or higher, the patient may qualify for future screening with alternating mammogram and breast MRI. Electronically signed and approved by: Papito Lee DO
== END | disposition home or self-care (01) ==
LOC: RADMAMWWP 10:29
PROVIDERS: ATTEND Family Medicine
DX: Z12.31 Encounter for screening mammogram for malignant neoplasm of breast (principal); Z80.3 Family history of malignant neoplasm of breast; Z78.0 Asymptomatic menopausal state
CPT/HCPCS: 77063; 77067

== ENCOUNTER → 2023-11-26 | Outpatient (CLI) | payer MEDICARE | END | disposition home or self-care (01) | LOC: LABWHC1 11:23 | PROVIDERS: ATTEND Internal Medicine Endocrinology, Diabetes & Metabolism | DX: E05.90 Thyrotoxicosis, unspecified without thyrotoxic crisis or storm (principal) | CPT/HCPCS: 36415; 84443; 84445; 84481 ==

== ENCOUNTER → 2023-12-12 | Outpatient (CLI) | payer MEDICARE ==
--- NOTE | 2023-12-12 13:12 | NM ---
EXAMINATION TYPE: NM thyroid image only DATE OF EXAM: 12/12/2023 COMPARISON: Thyroid ultrasound 09/10/2023. CLINICAL INDICATION: Female, 68 years old with history of E05.90 THYROTOXICOSIS, UNSP WITHOUT THYROTO XIC CRI; TECHNIQUE: After the intravenous administration of 10.8 mCi Tc 99m Sodium Pertechnetate. FINDINGS: Similar heterogenous uptake within the thyroid glands with more focal areas in the superior right and more inferior left thyroid gland. IMPRESSION: 1. Somewhat heterogenous uptake of the thyroid glands no obvious associated nodule within the right superior gland. The left gland may correspond with nodule on thyroid ultrasound 09/10/2023. Findings could represent more dense areas of thyroid tissue.
== END | disposition home or self-care (01) ==
LOC: RADNMMAIN 10:00
PROVIDERS: ATTEND Internal Medicine Endocrinology, Diabetes & Metabolism
DX: E05.90 Thyrotoxicosis, unspecified without thyrotoxic crisis or storm (principal)
CPT/HCPCS: 78013; A9512

== ENCOUNTER → 2024-01-23 | Outpatient (CLI) | payer MEDICARE ==
[2024-01-23 15:31] LABS: T4, Free (Free Thyroxine) 1.52 ng/dL (0.80-1.80)
== END | disposition home or self-care (01) ==
LOC: LABWHC1 10:46
PROVIDERS: ATTEND Internal Medicine Endocrinology, Diabetes & Metabolism
DX: E05.90 Thyrotoxicosis, unspecified without thyrotoxic crisis or storm (principal)
CPT/HCPCS: 36415; 84439; 84443; 84480

== ENCOUNTER → 2024-03-13 | Outpatient (CLI) | payer MEDICARE ==
[2024-03-13 15:17] LABS: Basophils # (A) 0.11 X 10*3/uL (0.00-0.10); Eosinophils % (A) 2.8 %; HGB 12.7 g/dL (12.0-15.0); Lymphocytes # (A) 2.47 X 10*3/uL (0.90-5.00); Lymphocytes % (A) 23.3 %; MCH 28.1 pg (27.0-32.0); MCHC 31.8 g/dL (32.0-37.0); MCV 88.5 FL (80.0-97.0); Mean Platelet Volume 10.9 FL (9.5-12.2); Monocytes # (A) 0.75 X 10*3/uL (0.20-1.00); Monocytes % (A) 7.1 %; NRBC Per 100 WBC 0 X 10*3/uL (0.00-0.01); Neutrophils # (A) 6.87 X 10*3/uL (1.80-7.70); Neutrophils % (A) 64.8 %; Platelet Count 302 X 10*3/uL (140-440); RBC 4.52 X 10*6/uL (4.10-5.20); RDW 14.8 % (11.5-14.5); WBC 10.61 X 10*3/uL (4.50-10.00)
[2024-03-13 15:30] LABS: ALT 145 U/L (8-44); AST 42 U/L (13-35); Albumin 4.1 g/dL (3.8-4.9); Albumin/Globulin Ratio 2.16 Ratio (1.60-3.17); Alkaline Phosphatase 106 U/L (41-126); Blood Urea Nitrogen 25.3 mg/dL (9.0-27.0); Calcium 9.4 mg/dL (8.7-10.3); Carbon Dioxide 24.7 mmol/L (21.6-31.8); Chloride 106 mmol/L (96-109); Chol/HDL Ratio 3.61 Ratio; Globulin 1.9 g/dL (1.6-3.3); Glucose 117 mg/dL (70-110); LDL Cholesterol,Calculated 97.4 mg/dL (0.0-131.0); Potassium 3.8 mmol/L (3.5-5.5); Sodium 140 mmol/L (135-145); Total Bilirubin 0.4 mg/dL (0.3-1.2)
== END | disposition home or self-care (01) ==
LOC: LABWHC1 09:32
PROVIDERS: ATTEND Family Medicine
DX: I10 Essential (primary) hypertension (principal); E05.90 Thyrotoxicosis, unspecified without thyrotoxic crisis or storm
CPT/HCPCS: 36415; 80053; 80061; 84439; 84443; 84480; 85025

== ENCOUNTER 2024-04-05 06:19 | Emergency (ER) | payer MEDICARE ==
--- NOTE | 2024-04-05 06:48 | ED ---
URI HPI - General Chief Complaint: Upper Respiratory Infection Stated Complaint: BOBBI Time Seen by Provider: 04/05/24 06:29 Source: patient, RN notes reviewed Mode of arrival: ambulatory Limitations: no limitations - History of Present Illness Initial Comments: 68-year-old female presents emergency department with cough and cold-like symptoms x 1 week. Patient states that she just started some sinus congestion states coughing is worsened she just been up all night coughing. She states it is productive at times with some sputum. Patient reports possible fever she states she has minimal headache no chest pain she states she does have asthma, COPD. Denies any abdominal pain no nausea vomiting denies any sick contacts. - Related Data Home Medications Medication Instructions Recorded Confirmed Ascorbic Acid [Vitamin C] 500 mg PO DAILY 10/09/16 06/20/23 Calcium Carbonate [Calcium] 600 mg PO DAILY 10/09/16 06/20/23 Cholecalciferol [Vitamin D3 (25 5,000 unit PO DAILY 10/09/16 06/20/23 Mcg = 1000 Iu)] Multivitamins, Thera [Multivitamin 1 tab PO DAILY 10/09/16 06/20/23 (formulary)] Vitamin B Complex 1 cap PO DAILY 10/09/16 06/20/23 Aspirin 81 mg PO DAILY 03/22/22 06/20/23 Ibuprofen [Motrin] 800 mg PO TID PRN 03/22/22 06/20/23 Losartan/Hydrochlorothiazide 1 tab PO DAILY 03/22/22 06/20/23 [Losartan-Hctz 100-25 mg Tab] EPINEPHrine [Primatene Mist] 1 puff INHALATION DIRECTED PRN 06/20/23 06/20/23 Fluticasone Propionate [Flonase 1 spray EA NOSTRIL DIRECTED PRN 06/20/23 0 06/20/23 Allergy Relief] Furosemide [Lasix] 20 mg PO Q48H 06/20/23 06/20/23 Loratadine [Claritin] 10 mg PO DAILY 06/20/23 06/20/23 Omeprazole [PriLOSEC] 40 mg PO DAILY 06/20/23 06/20/23 Potassium Chloride [K-Tab ER] 20 meq PO DAILY 06/20/23 06/20/23 Previous Rx's Medication Instructions Recorded Azithromycin [Zithromax Z Pack] 0 tab PO DIRECTED #6 tab 04/05/24 predniSONE 50 mg PO DAILY #5 tab 04/05/24 Allergies Allergy/AdvReac Type Severity Reaction Status Date / Time chloramphenicol Allergy dizzy Verified 04/05/24 06:22 [From Chloromycetin] ciprofloxacin Allergy Rash/Hives Verified 04/05/24 06:22 diclofenac Allergy Itching,ana Verified 04/05/24 06:22 rrhea sulfamethoxazole Allergy Rash/Hives Verified 04/05/24 06:22 [From Bactrim] tramadol [From Ultram] Allergy Itching Verified 04/05/24 06:22 trimethoprim [From Bactrim] Allergy Rash/Hives Verified 04/05/24 06:22 Review of Systems ROS Statement: Those systems with pertinent positive or pertinent negative responses have been documented in the HPI. ROS Other: All systems not noted in ROS Statement are negative. Past Medical History Past Medical History: Asthma, GERD/Reflux, Hypertension, Rheumatoid Arthritis (RA) Additional Past Medical History / Comment(s): varicose veins, hx hiatal hernia with surgery, allergies, states swelling lower extremities., blood with bowel movement. History of Any Multi-Drug Resistant Organisms: None Reported Past Surgical History: Ear Surgery, Hernia Repair, Hysterectomy, Joint Replacement Additional Past Surgical History / Comment(s): rt & left shoulder replacement, R ear surgery, L paraesophageal hernia repair. Lefty TKA, COLONOSCOPY, bakers cyst removed left knee, Bilat knee repacements. Past Anesthesia/Blood Transfusion Reactions: No Reported Reaction, Motion Sickness Additional Past Anesthesia/Blood Transfusion Reaction / Comment(s): Woke up during surgery. Past Psychological History: No Psychological Hx Reported Smoking Status: Never smoker Past Alcohol Use History: Rare Past Drug Use History: None Reported - Past Family History Mother Family Medical History: Cancer Additional Family Medical History / Comment(s): uterine cancer. Father Family Medical History: CVA/TIA, Rheumatoid Arthritis (RA) Additional Family Medical History / Comment(s): Father had varicosities and hernias. General Exam Limitations: no limitations General appearance: alert, in no apparent distress Head exam: Present: atraumatic, normocephalic, normal inspection Eye exam: Present: normal appearance, PERRL, EOMI. Absent: scleral icterus, conjunctival injection, periorbital swelling ENT exam: Present: normal exam, mucous membranes moist Neck exam: Present: normal inspection, full ROM. Absent: tenderness, meningismus, lymphadenopathy Respiratory exam: Present: wheezes. Absent: normal lung sounds bilaterally, respiratory distress, rales, rhonchi, stridor Cardiovascular Exam: Present: regular rate, normal rhythm, normal heart sounds. Absent: systolic murmur, diastolic murmur, rubs, gallop, clicks Course Vital Signs 04/05/24 04/05/24 04/05/24 06:22 06:56 07:19 Temperature 98.3 F Pulse Rate 79 70 80 Respiratory 22 16 Rate Blood Pressure 151/75 131/69 O2 Sat by Pulse 98 97 Oximetry 04/05/24 07:28 Temperature Pulse Rate 84 Respiratory Rate Blood Pressure O2 Sat by Pulse Oximetry Medical Decision Making - Medical Decision Making Was pt. sent in by a medical professional or institution (, PA, PLAST[employer] FAB[employer]ICATOR [employer] ASSEMBLER, urgent care, hospital, or group home...) When possible be specific @ -No Did you speak to anyone other than the patient for history (EMS, parent, family, police, friend...)? What history was obtained from this source @ -No Did you review nursing and triage notes (agree or disagree)? Why? @ -I reviewed and agree with nursing and triage notes Were old charts reviewed (outside hosp., previous admission, EMS record, old EKG, old radiological studies, urgent care reports/EKG's, group home records)? Report findings @ -No old charts were reviewed Differential Diagnosis (chest pain, altered mental status, abdominal pain women, abdominal pain men, vaginal bleeding, weakness, fever, dyspnea, syncope, hea dache, dizziness, GI bleed, back pain, seizure, CVA, palpatations, mental health, musculoskeletal)? @ -COVID 19, RSV, influenza, pneumonia, acute bronchitis, URI, this list is not all inclusive EKG interpreted by me (3pts min.). @ -None X-rays interpreted by me (1pt min.). @ -Chest x-ray shows mild haziness no focal pneumonia CT interpreted by me (1pt min.). @ -None done U/S interpreted by me (1pt. min.). @ -None done What testing was considered but not performed or refused? (CT, X-rays, U/S, l abs)? Why? @ -None What meds were considered but not given or refused? Why? @ -None Did you discuss the management of the patient with other professionals (professionals i.e. , PA, P[employer] FABRICATOR AND ASSEMBLER, lab, RT, psych nurse, social service liaison, healthcare applications analyst, teacher, mounted police officer, medical case worker)? Give summary @ -No Was smoking cessation discussed for >3mins.? @ -No Was critical care preformed (if so, how long)? @ -No Were there social determinants of health that impacted care today? How? (Homelessness, low income, unemployed, alcoholism, drug addiction, transportation, low edu. Level, literacy, decrease access to med. care, penitentiary, rehab)? @ -No Was there de-escalation of care discussed even if they declined (Discuss DNR or withdrawal of care, Hospice)? DNR status @ -No What co-morbidities impacted this encounter? (DM, HTN, Smoking, COPD, CAD, Cancer, CVA, ARF, Chemo, Hep., AIDS, mental health diagnosis, sleep apnea, morbid obesity)? @ -Asthma Was patient admitted / discharged? Hospital course, mention meds given and route, prescriptions, significant lab abnormalities, going to OR and other pertinent info. @ -Discharge patient's vitals are stable. Patient for URI symptoms patient does have a history of asthma had moderate wheezing, rhonchi patient will be treated for tracheobronchitis, asthma exacerbation patient agrees with plan discharge after Rocephin. Undiagnosed new problem with uncertain prognosis? @ -No Drug Therapy requiring intensive monitoring for toxicity (Heparin, Nitro, Insulin, Cardizem)? @ -No Were any procedures done? @ -No Diagnosis/symptom? @ -Tracheobronchitis, asthma exacerbation Acute, or Chronic, or Acute on Chronic? @ -Acute Uncomplicated (without systemic symptoms) or Complicated (systemic symptoms)? @ -Complicated Side effects of treatment? @ -No Exacerbation, Progression, or Severe Exacerbation? @ -Exacerbation asthma Poses a threat to life or bodily function? How? (Chest pain, [place], [place], pneumonia, PE, COPD, DKA, ARF, appy, cholecystitis, CVA, Diverticulitis, Homicidal, Suicidal, threat to staff... and all critical care pts) @ -Yes low likelihood respiratory failure - Lab Data Result diagrams: 04/05/24 06:47 04/05/24 06:47 Lab Results 0604/05/24 04/05/24 Range/Units 06:47 06:47 06:47 WBC 11.8 H (3.8-10.6) k/uL RBC 4.29 (3.80-5.40) m/uL Hgb 12.5 (11.4-16.0) gm/dL Hct 38.1 (34.0-46.0) % MCV 88.8 (80.0-100.0) fL MCH 29.1 (25.0-35.0) pg MCHC 32.8 (31.0-37.0) g/dL RDW 15.2 (11.5-15.5) % Plt Count 260 (150-450) k/uL MPV 8.4 Neutrophils % 75 % Lymphocytes % 14 % Monocytes % 6 % Eosinophils % 3 % Basophils % 1 % Neutrophils # 8.8 H (1.3-7.7) k/uL Lymphocytes # 1.6 (1.0-4.8) k/uL Monocytes # 0.7 (0-1.0) k/uL Eosinophils # 0.3 (0-0.7) k/uL Basophils # 0.1 (0-0.2) k/uL Sodium 137 (137-145) mmol/L Potassium 3.9 (3.5-5.1) mmol/L Chloride 109 H (98-107) mmol/L Carbon Dioxide 22 (22-30) mmol/L Anion Gap 6 mmol/L BUN 27 H (7-17) mg/dL Creatinine 1.10 H (0.52-1.04) mg/dL Est GFR (CKD-EPI)AfAm 59 (>60 ml/min/1.73 sqM) Est GFR (CKD-EPI)NonAf 51 (>60 ml/min/1.73 sqM) Glucose 109 H (74-99) mg/dL Calcium 9.0 (8.4-10.2) mg/dL Total Bilirubin 0.7 (0.2-1.3) mg/dL AST 36 (14-36) U/L ALT 64 H (4-34) U/L Alkaline Phosphatase 115 (38-126) U/L Total Protein 5.8 L (6.3-8.2) g/dL Albumin 3.7 (3.5-5.0) g/dL Influenza Type A (PCR) Not Detected (Not Detectd) Influenza Type B (PCR) Not Detected (Not Detectd) RSV (PCR) Not Detected (Not Detectd) SARS-CoV-2 (PCR) Not Detected (Not Detectd) Disposition Clinical Impression: Tracheobronchitis, Asthma exacerbation Disposition: HOME SELF-CARE Condition: Stable Instructions (If sedation given, give patient instructions): Upper Respiratory Infection (ED) Additional Instructions: Please return to the Emergency Department if symptoms worsen or any other concerns. Prescriptions: predniSONE 50 mg PO DAILY #5 tab Azithromycin [Zithromax Z Pack] 0 tab PO DIRECTED #6 tab Is patient prescribed a controlled substance at d/c from ED?: No Referrals: Fernando Amaro MD [Primary Care Provider] - 1-2 days Time of Disposition: 07:58
[2024-04-05] MEDS: methylPREDNISolone SOD SUCCI 125 MG/2 ML VIAL IV STA (06:51)
[2024-04-05] MEDS: IPRATROPIUM-ALBUTEROL 3 ML NEB INHALATION STA (07:19)
--- NOTE | 2024-04-05 07:26 | XR ---
EXAMINATION TYPE: XR chest 2V DATE OF EXAM: 04/05/2024 7:18 AM CLINICAL INDICATION:Female, 68 years old with history of fever; [facility] COMPARISON: Chest radiographs from 10/12/2016 TECHNIQUE: XR chest 2V Frontal and lateral views of the chest. FINDINGS: Lungs/Pleura: There is no evidence of pleural effusion, focal consolidation, or pneumothorax. Pulmonary vascularity: Unremarkable. Heart/mediastinum: Cardiomediastinal silhouette is unremarkable. Musculoskeletal: No acute osseous pathology. Bilateral shoulder arthroplasties with hardware intact.. IMPRESSION: No acute cardiopulmonary disease/process.
[2024-04-05 07:36] LABS: Basophils # (A) 0.1 k/uL (0-0.2); Basophils % (A) 1 %; Eosinophils # (A) 0.3 k/uL (0-0.7); Eosinophils % (A) 3 %; HCT 38.1 % (34.0-46.0); HGB 12.5 gm/dL (11.4-16.0); Lymphocytes # (A) 1.6 k/uL (1.0-4.8); Lymphocytes % (A) 14 %; MCH 29.1 pg (25.0-35.0); MCHC 32.8 g/dL (31.0-37.0); MCV 88.8 fL (80.0-100.0); Mean Platelet Volume 8.4; Monocytes # (A) 0.7 k/uL (0-1.0); Monocytes % (A) 6 %; Neutrophils # (A) 8.8 k/uL (1.3-7.7); Neutrophils % (A) 75 %; Platelet Count 260 k/uL (150-450); RBC 4.29 m/uL (3.80-5.40); RDW 15.2 % (11.5-15.5); WBC 11.8 k/uL (3.8-10.6)
[2024-04-05 07:39] LABS: ALT 64 U/L (4-34); AST 36 U/L (14-36); African American GFR (CKD) 59 (>60 ml/min/1.73 sqM); Albumin 3.7 g/dL (3.5-5.0); Alkaline Phosphatase 115 U/L (38-126); Anion Gap 6 mmol/L; Blood Urea Nitrogen 27 mg/dL (7-17); Carbon Dioxide 22 mmol/L (22-30); Chloride 109 mmol/L (98-107); Glucose 109 mg/dL (74-99); Non-African American GFR(CKD) 51 (>60 ml/min/1.73 sqM); Potassium 3.9 mmol/L (3.5-5.1); Sodium 137 mmol/L (137-145); Total Bilirubin 0.7 mg/dL (0.2-1.3); Total Protein 5.8 g/dL (6.3-8.2)
[2024-04-05] MEDS: cefTRIAXone IN SWFI 1,000 MG/10 ML SYRINGE IVP STA (07:51)
[2024-04-05 07:55] VITALS: BP 109/70; PULSE 81; RESP 20; TEMP 97.9
== END 2024-04-05 08:11 | disposition home or self-care (01) ==
LOC: EC 06:19
DX: J45.901 Unspecified asthma with (acute) exacerbation (principal); Z88.1 Allergy status to other antibiotic agents; Z88.2 Allergy status to sulfonamides; Z88.5 Allergy status to narcotic agent; Z88.6 Allergy status to analgesic agent; Z88.8 Allergy status to other drugs, medicaments and biological substances; Z79.51 Long term (current) use of inhaled steroids
CPT/HCPCS: 36415; 94640; 80053; 85025; 87636; 71046; 99285; 96374; 96375; J0696; J2919

== ENCOUNTER → 2024-04-17 | Outpatient (CLI) | payer MEDICARE ==
--- NOTE | 2024-04-17 13:59 | US ---
EXAMINATION TYPE: US venous doppler duplex LE BI DATE OF EXAM: 04/17/2024 1:42 PM COMPARISON: NONE CLINICAL INDICATION: Female, 69 years old with history of LE; R60.0; Left leg bruising SIDE PERFORMED: Bilateral TECHNIQUE: The lower extremity deep venous system is examined utilizing real time linear array sonog kena with graded compression, doppler sonography and color-flow sonography. VESSELS IMAGED: Common Femoral Vein Deep Femoral Vein Greater Saphenous Vein * Femoral Vein Popliteal Vein Small Saphenous Vein * Proximal Calf Veins (* superficial vessels) Right Leg: Negative for DVT Left Leg: Negative for DVT IMPRESSION: Grayscale, color doppler, spectral doppler imaging performed of the deep veins of the lo wer extremities. There is normal flow, compressibility, vascular waveforms.
== END | disposition home or self-care (01) ==
LOC: RADUSWWP 13:17
PROVIDERS: ATTEND Family Medicine
DX: R60.0 Localized edema (principal)
CPT/HCPCS: 93970

== ENCOUNTER → 2024-10-19 | Outpatient (CLI) | payer MEDICARE ==
--- NOTE | 2024-10-19 15:12 | BD ---
EXAMINATION TYPE: Axial Bone Density DATE OF EXAM: 10/19/2024 CLINICAL HISTORY: 69 years old Female. ICD-10 CODE: Z78.0 ASYMPTOMATIC MENOPAUSAL STA , Additional H istory: Height: 60 Weight: 228.2 FRAX RISK QUESTIONS: Alcohol (3 or more units per day): no Family History (Parent hip fracture): no Glucocorticoids (More than 3mos): no (Ex: prednisone, prednisolone, methylprednisolone, dexamethasone, and hydrocortisone). History of Fracture in Adulthood: no Secondary Osteoporosis: 1. Type 1 Diabetes: no 2. Hyperthyroidism: yes 3. Menopause before 45: no 4. Malnutrition: no 5. Chronic liver disease: no Rheumatoid Arthritis: yes Current Tobacco Use: no RISK FACTORS HISTORY OF: Hip Fracture (Right/Left): no Spine Fracture: no History of Wrist Fracture: no Surgery to Spine/Hip(right/left)/Wrist (right/left): no MEDICATIONS: Thyroid Medications: Sawyer zine How Long: past 6 months Osteoporosis Medications: no EXAM MEASUREMENTS: Bone mineral densitometry was performed using the [employer]. Bone mineral density as measured about the Lumbar spine is: ----- L1-L4(G/cm2): 1.810 T Score Values are as follows: ----- L1: 2.2 ----- L2: 3.6 ----- L3: 6.2 ----- L4: 8.0 ----- L1-L4: 5.3 Z Score Values are as follows: ----- L1: 2.7 ----- L2: 4.2 ----- L3: 6.8 ----- L4: 8.5 ----- L1-L4: 5.8 Bone mineral density has: increased 2.3 % since study of: 10/17/2022 Bone mineral density about the R hip (g/cm2): 0.967 Bone mineral density about the L hip (g/cm2): 1.050 T Score values are as follows: -----R Neck: -1.3 -----L Neck: -1.0 -----R Total: -0.3 -----L Total: 03 Z Score values are as follows: -----R Neck: -0.3 -----L Neck: 0.0 -----R Total: 0.4 -----L Total: 1.0 Bone mineral density has: increased 1.4 % since study of: 10/17/2022 FRAX%s: The graph provided illustrates a 10.8% chance for a major osteoporotic fx and a 1.5% chance f or the hips probability for fx in 10 years time. IMPRESSION: Osteopenia (T Score between -2.5 and -1). There is slightly increased risk of fracture and the patient may be considered for treatment. Re-Screen 2-5 years. NOTE: T-SCORE=SD OF THE YOUNG ADULT MEAN. [facility], , 10/19/2024 3:10 PM
== END | disposition home or self-care (01) ==
LOC: RADMAMWWP 09:23
PROVIDERS: ATTEND Family Medicine
DX: Z12.31 Encounter for screening mammogram for malignant neoplasm of breast (principal); Z78.0 Asymptomatic menopausal state; E05.90 Thyrotoxicosis, unspecified without thyrotoxic crisis or storm; M06.9 Rheumatoid arthritis, unspecified; M85.80 Other specified disorders of bone density and structure, unspecified site
CPT/HCPCS: 77063; 77067; 77080